=== PATIENT | female | born 1995 | race Hispanic/Latino ===

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

== ENCOUNTER → 2018-12-01 | Outpatient (CLI) | payer MEDICAID ==
[~2018-12-01] MED LIST changes: -CATHETER FLUSH 10 ML SYR IV PRN; -IOHEXOL 350 MG/ML 100 ML (OMNIPAQUE 350) VIAL IV ONE; -NS 100 ML (IVPB) BAG IV ONE
--- NOTE | 2018-12-01 17:31 | Diagnostic Imaging Report ---
INDICATION: Fetus present during , second trimester. TECHNIQUE: Multiple real-time grayscale images were obtained over the gravid uterus. COMPARISON: There are no prior studies available for comparison. FINDINGS: There is a single live fetus in breech presentation. heart motion was noted and a rate of 140 BPM was recorded. There were no abnormalities identified, although the stomach was not identified. The growth parameters are fairly uniform. The placenta is posterior and there is no previa. The amniotic fluid volume is within normal limits. The cervix was visualized and measures 4.1 cm in length. Biometrical measurements are as follows: Biparietal 4.31 cm, age 19 weeks 1 days. Head circumference 15.52 cm, age 18 weeks 4 days. Abdominal circumference 13.78 cm, age 19 weeks 2 days. Femur length 2.9 cm, age 19 weeks 0 days. Sonographic estimate age: 19 weeks 0 days. Sonographic estimated date of delivery: 04/27/2019. Estimated Weight: 269 gm (+/- 39 gm). LMP percentile: 46%. heart rate: 140 beats per minute. number: 1 of 1. IMPRESSION: 1. There is a single live fetus in breech presentation at approximately 19 weeks gestation +/-1.5 weeks. The EDC is April 27, 2019. 2. There were no abnormalities identified, although the stomach was not visualized. If further evaluation of the stomach is desired, then a short-term (4-6 week) followup ultrasound exam should be obtained. 3. The growth parameters are fairly uniform. Dictated by: Dictated on workstation # [id number]
== END ==
LOC: RAD 15:00
PROVIDERS: ATTEND Obstetrics & Gynecology
DX: Z34.92 Encounter for supervision of normal pregnancy, unspecified, second trimester (principal); Z3A.19 19 weeks gestation of pregnancy
CPT/HCPCS: 76805

== ENCOUNTER → 2019-02-05 | Outpatient (CLI) | payer MEDICAID, OTHER ==
--- NOTE | 2019-02-05 19:26 | Diagnostic Imaging Report ---
INDICATION: Reevaluate stomach. Comparison made with prior examination from 12/01/2018. TECHNIQUE: Multiple real-time grayscale images were obtained over the gravid uterus in various projections. FINDINGS: There is a single living intrauterine . Placenta is posterior. There is no previa. Amniotic fluid index is 19.3. The heart rate is 128 bpm and regular. Stomach is normal in appearance. Cervical length is 5.8 cm. IMPRESSION: Limited obstetrical sonogram demonstrates normal stomach. Dictated by: Dictated on workstation # [id number]
== END ==
LOC: RAD 13:59
PROVIDERS: ATTEND Obstetrics & Gynecology
DX: Z04.89 Encounter for examination and observation for other specified reasons (principal); Z3A.22 22 weeks gestation of pregnancy
CPT/HCPCS: 76815

== ENCOUNTER 2019-02-27 09:25 | Outpatient (CLI) | payer OTHER ==
[~2019-02-27] VITALS: Ht 152.4 cm; Wt 66.2 kg
--- NOTE | 2019-02-27 09:25 | NUR ---
TORIBIO FONSECA presented to unit via AMB from WORK, with c/o DECREASE MOVEMENT. TORIBIO FONSECA weighed, gowned, voided, and to bed. EFHM and TOCO applied, VS taken. TORIBIO FONSECA oriented to bed controls, call light, TV, heat, and A/C controls.
[2019-02-27 09:31] VITALS: BP 107/67
--- NOTE | 2019-02-27 09:57 | NUR ---
EFM OFF. REACTIVE NST. NO CONTRACTIONS NOTED. FHR 135 WITH +FM AND + ACCELS.
--- NOTE | 2019-02-27 10:03 | NUR ---
DR. FATIMA NOTIFIED OF PT'S ARRIVAL, COMPLAINT, VITAL SIGNS, AND REACTIVE NST. ORDER TO DISMISS WITH PRECAUTIONS.
[2019-02-27] MEDS ORDERED: PREN1TAB79 PO (10:09)
[2019-02-27 10:11] VITALS: BP 107/67
--- NOTE | 2019-02-27 10:25 | NUR ---
DISCHARGE INSTRUCTIONS REVIEWED WITH COPY TO PT. STATES UNDERSTANDING OF ALL INSTRUCTIONS AND NEED TO F/U SCHEDULED AND NEEDED. DISMISSED AMB FROM WS IN STABLE CONDITION.
--- NOTE | 2019-02-28 08:05 | Physician Query-Final Dx ---
Clinic Account Progress/Dx Physician Query: Please give diagnosis Please include weeks gestation Date of Service Feb 27, 2019 at 09:25 ESTHER TREJO Feb 28, 2019 08:05
== END 2019-02-27 10:25 | disposition home or self-care (01) ==
LOC: WSo 09:25 → LDRP 09:26 → WSo 10:25
PROVIDERS: ATTEND Obstetrics & Gynecology
DX: O36.8130 Decreased fetal movements, third trimester, not applicable or unspecified (principal); Z3A.31 31 weeks gestation of pregnancy
CPT/HCPCS: 99212

== ENCOUNTER 2019-04-26 20:00 | Inpatient (IN) | payer OTHER ==
[~2019-04-26] VITALS: Ht 155 cm; Wt 73.7 kg
[~2019-04-26 20:00] MED LIST changes: +PREN1TAB79 PO
[2019-04-26 20:05] VITALS: BP 113/77
--- NOTE | 2019-04-26 20:05 | NUR ---
TORIBIO TEAGUE presented to unit via ambulatory from home, accompanied by s/o, with c/o INDUCTION. TORIBIO TEAGUE weighed, gowned, voided, and to bed. EFHM and TOCO applied, VS taken. TORIBIO TEAGUE oriented to bed controls, call light, TV, heat, and A/C controls.
[2019-04-26] MEDS ORDERED: MINERAL OIL CONCENTRATE 99.9% 15 ML UDC TOP PRN (20:45)
[2019-04-26] MEDS ORDERED: MISOPROSTOL 100 MCG (CYTOTEC) TAB PO ONE (20:45)
[2019-04-26] MEDS ORDERED: TERBUTALINE INJ 1 MG/ML (BRETHINE) AMP SC PRN (20:45)
[2019-04-26] MEDS: LACTATED RINGERS 1,000 ML IV SCH (21:00)
[2019-04-26] MEDS ORDERED: ZOLPIDEM 5 MG (AMBIEN) TAB PO ONE (21:00)
[2019-04-26 21:28] LABS: BILIRUBIN,URINE NEGATIVE (NEGATIVE); CLARITY,URINE CLEAR; COLOR,URINE YELLOW; GLUCOSE, URINE (UA) NEGATIVE (NEGATIVE); KETONES,URINE NEGATIVE (NEGATIVE); LEUKOCYTE ESTERASE ,URINE TRACE (NEGATIVE); NITRITE,URINE NEGATIVE (NEGATIVE); PROTEIN,URINE NEGATIVE (NEGATIVE)
[2019-04-26 21:30] LABS: BASOPHILS % (AUTO) 0 % (0-10); EOSINOPHILS # (AUTO) 0.1 10^3/uL (0.0-0.3); EOSINOPHILS % (AUTO) 1 % (0-10); HEMATOCRIT 33 % (35-52); LYMPHOCYTES # (AUTO) 2.3 X 10^3 (1.0-4.0); LYMPHOCYTES % (AUTO) 15 % (12-44); MEAN CORPUSCULAR HEMOGLOBIN 30 PG (25-34); MEAN CORPUSCULAR HGB CONC 33 G/DL (32-36); MEAN CORPUSCULAR VOLUME 90 FL (80-99); MEAN PLATELET VOLUME 11.7 FL (7.4-10.4); MONOCYTES # (AUTO) 1.2 X 10^3 (0.0-1.0); MONOCYTES % (AUTO) 8 % (0-12); NEUTROPHILS # (AUTO) 11.9 X 10^3 (1.8-7.8); NEUTROPHILS % (AUTO) 77 % (42-75); PLATELET COUNT 227 10^3/uL (130-400); RED CELL DISTRIBUTION WIDTH 13.8 % (10.0-14.5); WHITE BLOOD COUNT 15.5 10^3/uL (4.3-11.0)
[2019-04-26 21:42] LABS: BACTERIA,URINE TRACE /HPF; RBC,URINE RARE /HPF; WBC,URINE RARE /HPF
[2019-04-26] MEDS ORDERED: CATHETER FLUSH 10 ML SYR IV SCH (22:00)
[2019-04-26] MEDS: D5 LR IV SOLUTION 1,000 ML IV SCH (22:09)
[2019-04-26 23:00] VITALS: BP 121/76
[2019-04-27] VITALS (49 sets, daily range): BP systolic 104–136; BP diastolic 54–86
[2019-04-27] MEDS: MISOPROSTOL 100 MCG (CYTOTEC) TAB PO SCH ×2 (01:58→06:17)
[2019-04-27] MEDS: D5 LR IV SOLUTION 1,000 ML IV SCH ×2 (04:28→12:34)
--- NOTE | 2019-04-27 06:10 | NUR ---
SVE done at bedside. Pt is dilated to 1.5cm, 50-60% effaced.
[2019-04-27] MEDS: LACTATED RINGERS 1,000 ML IV SCH (07:15)
[2019-04-27] MEDS ORDERED: BUTORPHANOL INJ 2 MG/ML (STADOL) VIAL IV ONE (07:15)
[2019-04-27] MEDS ORDERED: FLU QUADRIvalent (5+ YOA) 2019-2020 (AFLURIA) 0.5 ML IM ONE (07:15)
[2019-04-27] MEDS ORDERED: SUFENTA 0.6MCG/ML BUPIVA 0.125 100 ML ONE (07:28)
[2019-04-27] MEDS ORDERED: LACTATED RINGERS 1,000 ML IV SCH (08:19)
[2019-04-27] MEDS ORDERED: NALOXONE 0.4 MG/ML 1 ML (NARCAN) VIAL IV PRN ×2 (08:30)
[2019-04-27] MEDS ORDERED: METOCLOPRAMIDE INJ 10 MG/2 ML (REGLAN) IV PRN (08:30)
[2019-04-27] MEDS ORDERED: ONDANSETRON 4 MG/2 ML (SDV) Z0FRAN IV PRN (08:30)
[2019-04-27] MEDS ORDERED: diphenhydrAMINE 50 MG/ML INJ (BENADRYL) IV PRN (08:30)
[2019-04-27] MEDS ORDERED: EPIDURAL (SUFENTA 0.6MCG/ML BUPIVA 0.125%) 100 ML BAG EPI SCH (08:30)
[2019-04-27] MEDS ORDERED: OXYTOCIN/NORMAL SALINE 500 ML IV ONE (10:00)
[2019-04-27] MEDS ORDERED: OXYTOCIN/NORMAL SALINE 500 ML IV SCH ×2 (10:03→15:28)
[2019-04-27] MEDS ORDERED: LIDOCAINE 1% INJ 20 ML 20 ML VIAL ONE (12:20)
--- NOTE | 2019-04-27 15:10 | NUR ---
REPORT FROM ZOË CASEY. SANDRA-CARE COMPLETED PT REPOSITIONED IN BED, EPIDURAL CATHETER REMOVED BLACK TIP NOTED ON REMOVAL, FFU/2 LT LOCHIA NOTED, PT DENIES NEEDS AT THIS TIME. S/O AND FAMILY MEMBER AT SIDE, INFANT IN MOTHERS ARMS.
[2019-04-27] MEDS ORDERED: IBUPROFEN 600 MG (MOTRIN) TAB PO ONE (15:24)
[2019-04-27] MEDS ORDERED: TETANUS,DIPTH,PERTUSS P/F (BOOSTRIX) 0.5 ML VIAL IM ONE (15:30)
[2019-04-27] MEDS ORDERED: DIBUCAINE (NUPERCAINAL) 1% OINT 30 GM TOP PRN (15:30)
[2019-04-27] MEDS: IBUPROFEN 600 MG (MOTRIN) TAB PO SCH ×2 (15:30→20:44)
[2019-04-27] MEDS ORDERED: MEASLES,MUMPS,RUBELLA 1 EA INJ SQ ONE (15:30)
[2019-04-27] MEDS ORDERED: WITCH HAZEL(TUCKS) 40 EA JAR TOP PRN (15:30)
--- NOTE | 2019-04-27 15:30 | NUR ---
SCHEDULED MOTRIN GIVEN PO, PITOCIN 2ND BAG STARTED PER ORDER. FFU/1 LT LOCHIA NOTED, FRESH ICE WATER GIVEN NO C/O NOTED WILL MONITOR.
--- NOTE | 2019-04-27 15:40 | OB Labor & Delivery Record ---
Vag Delivery Note Vag Delivery Note Date of Delivery: 04/27/19 Preoperative Diagnosis: Robert Gomez is a 24 /Para 1/0 , Gestational Age 40 weeks with social induction for post dates Postoperative Diagnosis: Same Surgeon: CATRACHITA FATIMA Anesthesia: epidural, local Delivery Type: vaginal Findings: Viable male infant, apgars , weight 8#2 ounces Lacerations: 2nd degree laceration with partial capsulotomy Intact placenta with 3 vessel cord. No nuchal cord, body cord or shoulder dystocia Estimated Blood Loss:500 ml Complications: None Condition: Stable Description of Procedure: The patient is a 24 year old female who presented for induction of labor. She was admitted and informed consent was obtained. Her labor course was remarkable for oral misoprostol, AROM and oxytocin augmentation. She progressed to complete dilatation and began to push. She was then set up for delivery. The 's head was delivered atraumatically in the ROT position. The shoulders and remainder of the infant's body were then delivered without difficulty. Upon delivery, the head was held below the level of the perineum and the mouth and nares were bulb suctioned. The cord was doubly clamped and cut and the infant was handed off to the pediatric staff. An intact placenta with 3-vessel cord delivered via Shaneka and there was found to be minimal bleeding.~ Vigorous fundal massage was performed and the fundus was found to be firm. IV oxytocin was given. Examination of the vagina and perineum revealed a 2nd degree laceration partial capsulotomy. There was a superficial tear up to the anal tissue but no rectal laceration. I injected the perineum with 1% lidocaine with epinephrine The laceration repaired in the usual fashion with 3-0 vicryl suture. Following the repair, sponge, instrument and needle counts were correct. Mom and baby were both in stable condition in the labor suite. Vitals - Labs Vital Signs - I&O Vital Signs Date Time Temp Pulse Resp B/P (MAP) Pulse Ox O2 Delivery O2 Flow Rate FiO2 04/27/19 15:00 37.9 131 18 131/68 (89) 04/27/19 14:45 18 04/27/19 14:30 109 18 122/59 (80) 04/27/19 14:15 101 18 125/61 (82) 04/27/19 14:00 95 18 128/61 (83) 04/27/19 13:45 97 18 125/76 (92) 04/27/19 13:30 95 18 132/68 (89) 04/27/19 13:15 84 18 122/58 (79) 04/27/19 13:00 36.7 94 18 123/80 (94) 04/27/19 12:45 87 18 132/78 (96) 04/27/19 12:30 93 18 127/76 (93) 04/27/19 12:15 78 18 117/78 (91) Room Air 04/27/19 12:00 88 18 116/63 (80) 100 Room Air 04/27/19 11:45 90 18 120/62 (81) 100 Room Air 04/27/19 11:30 83 18 126/78 (94) 100 Room Air 04/27/19 11:15 100 18 119/69 (86) 100 Room Air 04/27/19 11:00 86 18 119/76 (90) 100 Room Air 04/27/19 10:45 85 18 119/73 (88) 100 Room Air 04/27/19 10:30 83 18 117/73 (88) 100 Room Air 04/27/19 10:15 90 18 122/72 (89) 100 Room Air 04/27/19 10:00 36.5 92 18 120/75 (90) 100 Room Air 04/27/19 09:45 92 18 118/77 (91) 100 Room Air 04/27/19 09:30 94 18 113/71 (85) 100 Room Air 04/27/19 09:15 104 18 111/71 (84) 100 Room Air 04/27/19 09:00 95 18 111/69 (83) 100 Room Air 04/27/19 08:45 112 18 117/72 (87) 100 Room Air 04/27/19 08:40 90 18 115/56 (75) 100 Room Air 04/27/19 08:35 88 18 107/62 (77) 100 Room Air 04/27/19 08:30 81 18 111/64 (80) 100 Room Air 04/27/19 08:25 81 18 109/66 (80) 100 Room Air 04/27/19 08:20 85 18 108/61 (77) 100 Room Air 04/27/19 08:15 95 18 104/55 (71) 100 Room Air 04/27/19 08:10 88 18 109/55 (73) 100 Room Air 04/27/19 08:05 88 18 106/59 (75) 99 Room Air 04/27/19 08:00 88 18 114/66 (82) 99 Room Air 04/27/19 07:45 84 18 128/76 (93) 99 Room Air 04/27/19 07:30 36.7 96 18 136/86 (103) 04/27/19 04:00 36.5 81 18 126/79 (95) 04/27/19 03:00 81 18 128/83 (98) 04/27/19 02:00 74 18 131/76 (94) 04/27/19 01:00 36.5 92 18 124/79 (94) 04/27/19 00:00 75 18 120/74 (89) 04/26/19 23:00 83 18 121/76 (91) 04/26/19 20:05 36.9 87 18 100 Room Air I & O 04/27/19 07:00 Intake Total 2000 ml Balance 2000 ml Labs Laboratory Tests 04/26/19 20:30: White Blood Count 15.5H, Red Blood Count 3.64L, Hemoglobin 11.0L, Hematocrit 33L , Mean Corpuscular Volume 90, Mean Corpuscular Hemoglobin 30, Mean Corpuscular Hemoglobin Concent 33, Red Cell Distribution Width 13.8, Platelet Count 227, Mean Platelet Volume 11.7H, Neutrophils (%) (Auto) 77H, Lymphocytes (%) (Auto) 15, Monocytes (%) (Auto) 8, Eosinophils (%) (Auto) 1, Basophils (%) (Auto) 0, Neutrophils # (Auto) 11.9H, Lymphocytes # (Auto) 2.3, Monocytes # (Auto) 1.2H, Eosinophils # (Auto) 0.1, Basophils # (Auto) 0.0, Urine Color YELLOW, Urine Clarity CLEAR, Urine pH 7.0, Urine Specific [place] <=1.005, Urine Protein NEGATIVE, Urine Glucose (UA) NEGATIVE, Urine Ketones NEGATIVE, Urine Nitrite NEGATIVE, Urine Bilirubin NEGATIVE, Urine Urobilinogen 0.2, Urine Leukocyte Esterase TRACE, Urine RBC (Auto) TRACE-I, Urine RBC RARE, Urine WBC RARE, Urine Squamous Epithelial Cells 2-5, Urine Crystals NONE, Urine Bacteria TRACE, Urine Casts NONE, Urine Mucus NEGATIVE, Urine Culture Indicated NO CATRACHITA FATIMA DO Apr 27, 2019 15:40 POS
--- NOTE | 2019-04-27 16:15 | NUR ---
OXYCODONE GIVEN FOR PAIN, FFU/0 MOD LOCHIA NOTED, X 1 SMALL CLOT APPROX QUARTER SIZE NOTED EXPRESSED, PT ALSO VOIDED LARGE AMOUNT DURING FUNDAL MASSAGE, DERMAPLAST, TUCKS AND NUPERCANAL APPLIED, ALONG WITH ICE PACK AND NEW PAD AND PANTIES, PT TOLERATED WELL, PT TRANSFERRED TO ROOM 3310 BY FOR CONTINUED CARE. EXPLAINED INFO PAPERS NO QUESTIONS OR CONCERNS NOTED, PTS MOTHER AT SIDE, HANDED TO MOTHERS ARMS.
[2019-04-27] MEDS: BENZOCAINE/MENTHOL (DERMOPLAST) 56 ML CAN TP PRN (16:17)
--- NOTE | 2019-04-27 17:15 | NUR ---
REPORT RECEIVED FROM CATRACHITO FRANKEL RN.
--- NOTE | 2019-04-27 17:30 | NUR ---
ASSISTED UP TO THE BATHROOM. VOIDED LARGE AMOUNT. WHILE ASSISTING WITH SANDRA CARE, PT C/O FEELING "BAD" . PT BECAME PALE WITH SLUMPED FORWARD WITH THIS RN SUPPORTING PT. EMERGENCY CORD PULLED FOR HELP. COOL CLOTH TO FOREHEAD. ASKED SPOUSE TO GO OUT TO ASK FOR A W/C AND SEE IF SOMEONE CAN COME TO THE ROOM. 2ND RN TO ROOM TO ASSIST WHEN STARTED DRY HEAVING AND SPITTING UP MUCOUS. 3RD RN TO ROOM TO ASSIST WITH GETTING PT BACK TO BED.
--- NOTE | 2019-04-27 17:40 | NUR ---
BACK TO BED WITH RN'S X2. VS TAKEN AND WITHIN NORMAL LIMITS AT THIS TIME. COLOR RETURNING TO FACE. INFORMED PT AND SPOUSE TO CALL FOR ASSISTANCE WITH THE NEXT VOID.
--- NOTE | 2019-04-27 18:30 | NUR ---
EATING DINNER. STATES FEELING BETTER. FRESH ICE PACK GIVEN.
--- NOTE | 2019-04-27 19:45 | NUR ---
Patient ambulated to bathroom with stand by assist per this RN. Patient ambulated to bathroom without issue. Positive void achieved. Isabella care provided by patient with assist from this RN. Patient ambulated back to bed without issue. Denies any dizziness or lightheadness at this time.
[2019-04-27] MEDS: DOCUSATE SODIUM 100 MG (COLACE) CAP PO SCH (20:44)
[2019-04-27] MEDS ORDERED: CATHETER FLUSH 10 ML SYR IV SCH (22:00)
[2019-04-27] MEDS: ACETAMINOPHEN 500 MG TAB (TYLENOL) PO SCH (22:10)
[2019-04-28 00:30] VITALS: BP 93/54
[2019-04-28 03:09] VITALS: BP 106/74
[2019-04-28] MEDS: IBUPROFEN 600 MG (MOTRIN) TAB PO SCH ×4 (03:09→23:48)
[2019-04-28] MEDS: ACETAMINOPHEN 500 MG TAB (TYLENOL) PO SCH ×3 (05:45→20:33)
[2019-04-28 06:38] LABS: BASOPHILS % (AUTO) 0 % (0-10); EOSINOPHILS # (AUTO) 0.1 10^3/uL (0.0-0.3); EOSINOPHILS % (AUTO) 0 % (0-10); HEMATOCRIT 24 % (35-52); HEMOGLOBIN 7.9 G/DL (11.5-16.0); LYMPHOCYTES # (AUTO) 2.4 X 10^3 (1.0-4.0); LYMPHOCYTES % (AUTO) 11 % (12-44); MEAN CORPUSCULAR HEMOGLOBIN 30 PG (25-34); MEAN CORPUSCULAR HGB CONC 33 G/DL (32-36); MEAN CORPUSCULAR VOLUME 91 FL (80-99); MEAN PLATELET VOLUME 11.1 FL (7.4-10.4); MONOCYTES # (AUTO) 1.8 X 10^3 (0.0-1.0); MONOCYTES % (AUTO) 8 % (0-12); NEUTROPHILS # (AUTO) 18.5 X 10^3 (1.8-7.8); NEUTROPHILS % (AUTO) 81 % (42-75); PLATELET COUNT 167 10^3/uL (130-400); WHITE BLOOD COUNT 22.8 10^3/uL (4.3-11.0)
--- NOTE | 2019-04-28 08:57 | Postpartum Progress Note ---
Note Note Day # 1 s/p Subjective: Patient is without complaints. Ambulating, voiding. Tolerating a regular diet without nausea or vomiting. Normal lochia. Pain is well controlled with oral pain medications. breast feeding. Objective: 04/28/19 04/28/19 00:30 03:09 Temp 36.9 36.7 Pulse 96 89 Resp 18 18 B/P (MAP) 93/54 (67) 106/74 (85) Pulse Ox 99 98 O2 Delivery Room Air Room Air 04/28/19 00:00 Intake Total 2375 ml Balance 2375 ml Laboratory Tests Test 04/28/19 05:25 Range/Units White Blood Count 22.8 H 4.3-11.0 10^3/uL Red Blood Count 2.67 L 4.35-5.85 10^6/uL Hemoglobin 7.9 #L 11.5-16.0 G/DL Hematocrit 24 L 35-52 % Mean Corpuscular Volume 91 80-99 FL Mean Corpuscular Hemoglobin 30 25-34 PG Mean Corpuscular Hemoglobin Concent 33 32-36 G/DL Red Cell Distribution Width 14.0 10.0-14.5 % Platelet Count 167 130-400 10^3/uL Mean Platelet Volume 11.1 H 7.4-10.4 FL Neutrophils (%) (Auto) 81 H 42-75 % Lymphocytes (%) (Auto) 11 L 12-44 % Monocytes (%) (Auto) 8 0-12 % Eosinophils (%) (Auto) 0 0-10 % Basophils (%) (Auto) 0 0-10 % Neutrophils # (Auto) 18.5 H 1.8-7.8 X 10^3 Lymphocytes # (Auto) 2.4 1.0-4.0 X 10^3 Monocytes # (Auto) 1.8 H 0.0-1.0 X 10^3 Eosinophils # (Auto) 0.1 0.0-0.3 10^3/uL Basophils # (Auto) 0.0 0.0-0.1 10^3/uL Physical Exam: General - Alert and oriented, no apparent distress Abdomen - Soft, appropriately tender to palpation, non-distended, fundus firm at umbilicus Extremities - no edema, negative Rosalba's bilaterally Assessment: 1. post- day #1, status post spontaneous vaginal delivery. Recovering well, hemodynamically stable 2. Acute blood loss anemia Plan: Routine care. Encourage breast feeding. Encourage ambulation. Ferrous sulfate supplementation. Plan for discharge tomorrow Vitals - Labs Vital Signs - I&O Vital Signs Date Time Temp Pulse Resp B/P (MAP) Pulse Ox O2 Delivery O2 Flow Rate FiO2 04/28/19 03:09 36.7 89 18 106/74 (85) 98 Room Air 04/28/19 00:30 36.9 96 18 93/54 (67) 99 Room Air 04/27/19 20:44 36.9 112 18 108/68 (81) 98 Room Air 04/27/19 17:40 79 18 104/54 (71) 99 Room Air 04/27/19 16:11 37.2 99 18 109/57 (74) 04/27/19 16:06 105 18 106/57 (73) 04/27/19 15:56 98 18 117/66 (83) 04/27/19 15:41 110 18 111/55 (73) 04/27/19 15:30 37.2 108 18 114/60 (78) 04/27/19 15:10 112 18 117/57 (77) 04/27/19 15:00 37.9 131 18 131/68 (89) 04/27/19 14:45 18 04/27/19 14:30 109 18 122/59 (80) 04/27/19 14:15 101 18 125/61 (82) 04/27/19 14:00 95 18 128/61 (83) 04/27/19 13:45 97 18 125/76 (92) 04/27/19 13:30 95 18 132/68 (89) 04/27/19 13:15 84 18 122/58 (79) 04/27/19 13:00 36.7 94 18 123/80 (94) 04/27/19 12:45 87 18 132/78 (96) 04/27/19 12:30 93 18 127/76 (93) 04/27/19 12:15 78 18 117/78 (91) Room Air 04/27/19 12:00 88 18 116/63 (80) 100 Room Air 04/27/19 11:45 90 18 120/62 (81) 100 Room Air 04/27/19 11:30 83 18 126/78 (94) 100 Room Air 04/27/19 11:15 100 18 119/69 (86) 100 Room Air 04/27/19 11:00 86 18 119/76 (90) 100 Room Air 04/27/19 10:45 85 18 119/73 (88) 100 Room Air 04/27/19 10:30 83 18 117/73 (88) 100 Room Air 04/27/19 10:15 90 18 122/72 (89) 100 Room Air 04/27/19 10:00 36.5 92 18 120/75 (90) 100 Room Air 04/27/19 09:45 92 18 118/77 (91) 100 Room Air 04/27/19 09:30 94 18 113/71 (85) 100 Room Air 04/27/19 09:15 104 18 111/71 (84) 100 Room Air 04/27/19 09:00 95 18 111/69 (83) 100 Room Air I & O 04/28/19 07:00 Intake Total 3375 ml Balance 3375 ml Labs Laboratory Tests 04/28/19 05:25: White Blood Count 22.8H, Red Blood Count 2.67L, Hemoglobin 7.9#L, Hematocrit 24L , Mean Corpuscular Volume 91, Mean Corpuscular Hemoglobin 30, Mean Corpuscular Hemoglobin Concent 33, Red Cell Distribution Width 14.0, Platelet Count 167, Mean Platelet Volume 11.1H, Neutrophils (%) (Auto) 81H, Lymphocytes (%) (Auto) 11L, Monocytes (%) (Auto) 8, Eosinophils (%) (Auto) 0, Basophils (%) (Auto) 0, Neutrophils # (Auto) 18.5H, Lymphocytes # (Auto) 2.4, Monocytes # (Auto) 1.8H, Eosinophils # (Auto) 0.1, Basophils # (Auto) 0.0 CATRACHITA FATIMA DO Apr 28, 2019 08:57 POS
[2019-04-28] MEDS ORDERED: DOCU100C37 PO (09:00)
[2019-04-28] MEDS ORDERED: ACET-77 PO (09:00)
[2019-04-28] MEDS ORDERED: FERR325T18 PO (09:00)
[2019-04-28] MEDS ORDERED: OXC5T PO (09:00)
[2019-04-28] MEDS ORDERED: IBUP-844 PO (09:00)
[2019-04-28] MEDS ORDERED: Benzocaine/Menthol TP (09:00)
--- NOTE | 2019-04-28 09:06 | Discharge Inst-Women's Service ---
Discharge Inst-Women's Serv Depart Medication/Instructions New, Converted or Re-Newed RX: RX on Chart Final Diagnosis vaginal delivery 2nd degree laceration epidural acute blood loss anemia Problems Reviewed?: Yes Consults/Follow Up Additional Follow Up: Yes Activity Activity: Activity as Tolerated Driving Instructions: You May Drive NO SMOKING: NO SMOKING Nothing Inside Vagina: No Douching, No [place], No Tampons Diet Discharge Diet: No Restrictions Symptoms to Report to : Swelling Increased, Eyesight Changes, Pain Increased, Fever Over 101 Degrees F, Vaginal Bleeding Increase, Cramps in Feet or Legs, Vaginal Discharge Foul For Any Problems or Questions: Contact Your Physician Skin/Wound Care Bathing Instructions: CATRACHITA Harding DO Apr 28, 2019 09:06 POS
[2019-04-28 09:11] VITALS: BP 109/64
[2019-04-28] MEDS: FERROUS SULF 325 MG (IRON) TAB PO SCH (09:18)
[2019-04-28] MEDS: DOCUSATE SODIUM 100 MG (COLACE) CAP PO SCH ×2 (09:18→20:33)
[2019-04-28] MEDS: PRENATAL VITAMIN 1 EA TAB PO SCH (09:18)
[2019-04-28 12:34] VITALS: BP 128/86
--- NOTE | 2019-04-28 13:31 | Anesthesia-Regional Post-Op ---
Regional Patient Condition Mental Status: Alert, Oriented x3 Circulation: Same as Pre-Op Headache: Absent Sensation: Full Recovery Motor Block: Absent Post Op Complications Complications None Follow Up Care/Instructions Patient Instructions None needed. Anesthesia/Patient Condition Patient is doing well, no complaints, stable vital signs, no apparent adverse anesthesia problems. No complications reported per nursing. LARISA PAUL CRNA Apr 28, 2019 13:31 POS
[2019-04-28 16:00] VITALS: BP 124/78
--- NOTE | 2019-04-28 16:00 | NUR ---
Pt up and about without dizziness. VSS - standing talking on phone.
--- NOTE | 2019-04-28 20:41 | NUR ---
assessment completed. pt c/o thickness on right side of throat. Sp02 100% pt denies any shortness of air. no redness noted. told patient to notify rn if she feels symptoms worsening
[2019-04-28 20:47] VITALS: BP 110/71
[2019-04-29 03:00] VITALS: BP 106/66
[2019-04-29] MEDS: ACETAMINOPHEN 500 MG TAB (TYLENOL) PO SCH ×2 (04:03→09:27)
[2019-04-29] MEDS: IBUPROFEN 600 MG (MOTRIN) TAB PO SCH (06:05)
--- NOTE | 2019-04-29 07:00 | NUR ---
REPORT FROM EUGENE CASEY.
--- NOTE | 2019-04-29 08:48 | Progress Note ---
Standard Progress Note Progress Notes/Assess & Plan Date Seen by a Provider: Apr 29, 2019 Time Seen by a Provider: 08:47 Progress/Assessment & Plan This patient is without complaint. She is ablating, voiding, tolerating oral intake well has good pain control. She is requesting discharge home Vital Signs 04/29/19 03:00 Temp 36.8 Pulse 88 Resp 20 B/P (MAP) 106/66 (79) Pulse Ox 100 O2 Delivery Room Air Vital signs are stable. Patient is afebrile. Fundus is firm below the umbilicus and nontender. Extreme show no clubbing cyanosis. There is no Homans sign. There is some pretibial pitting edema that is normal. Assessment and plan day number 2 doing well plan is for discharge home with follow-up in clinic RAJI MARIA MD Apr 29, 2019 08:48 POS
--- NOTE | 2019-04-29 08:50 | NUR ---
DR GALEAS HERE D/C ORDERS RECEIVED.
[2019-04-29] MEDS: BENZOCAINE/MENTHOL (DERMOPLAST) 56 ML CAN TP PRN (09:15)
[2019-04-29 09:20] VITALS: BP 116/64
--- NOTE | 2019-04-29 09:20 | NUR ---
INITIAL ASSESSMENT COMPLETED, PT DENIES NEED OR C/O, SCHEDULED MED GIVEN. PT FINISHING UP BREAKFAST, SHOWER SET UP.
[2019-04-29] MEDS: PRENATAL VITAMIN 1 EA TAB PO SCH (09:27)
[2019-04-29] MEDS: DOCUSATE SODIUM 100 MG (COLACE) CAP PO SCH (09:27)
[2019-04-29] MEDS: FERROUS SULF 325 MG (IRON) TAB PO SCH (09:27)
--- NOTE | 2019-04-29 10:20 | NUR ---
FLU VACCINE GIVEN. PT PUMPING.
[2019-04-29 12:30] VITALS: BP 107/74
--- NOTE | 2019-04-29 13:50 | NUR ---
DISCHARGE INSTRUCTIONS EXPLAINED TO PT, NO QUESTIONS NOTED, PT VERBALIZES UNDERSTANDING OF DISCHARGE INSTRUCTIONS AND FOLLOW UP CARE, NO QUESTIONS OR CONCERNS NOTED.
--- NOTE | 2019-04-29 14:30 | NUR ---
pt ambulated to private vehicle with this RN, and s/o @ side. secured in rear facing car seat. pt stable with no sx's of distress noted.
== END 2019-04-29 14:30 | disposition home or self-care (01) | DRG 806 ==
LOC: LDRP 20:18
PROVIDERS: ADMIT Obstetrics & Gynecology; ATTEND Obstetrics & Gynecology
PROC: 10E0XZZ Delivery of Products of Conception, External Approach (ICD-10-PCS; principal; 2019-04-27)
PROC: 0KQM0ZZ Repair Perineum Muscle, Open Approach (ICD-10-PCS; 2019-04-27)
PROC: 10907ZC Drainage of Amniotic Fluid, Therapeutic from Products of Conception, Via Natural or Artificial Opening (ICD-10-PCS; 2019-04-27)
DX: O48.0 Post-term pregnancy (principal); Z37.0 Single live birth; D62 Acute posthemorrhagic anemia; O70.1 Second degree perineal laceration during delivery; O90.81 Anemia of the puerperium; Z3A.40 40 weeks gestation of pregnancy; Z23 Encounter for immunization
CPT/HCPCS: 36415; 81000; 85025; 86850; 86900; 86901

== ENCOUNTER 2019-10-20 03:31 | Emergency (ER) | payer OTHER ==
[~2019-10-20] VITALS: Ht 157 cm; Wt 59.0 kg
[~2019-10-20 03:31] MED LIST changes: +ACET-78 PO; +Benzocaine/Menthol TP; +DOCU100C37 PO; +FERR325T18 PO; +IBUP-844 PO; +OXC5T PO
[2019-10-20] MEDS ORDERED: LACTATED RINGERS 1,000 ML IV ONE (03:37)
[2019-10-20] MEDS ORDERED: PANTOPRAZOLE 40 MG (PROTONIX) VIAL IV ONE (03:45)
--- NOTE | 2019-10-20 03:46 | ED Abdominal Pain ---
General Stated Complaint: ABD PAIN Source of Information: Patient Exam Limitations: No Limitations History of Present Illness Date Seen by Provider: October 20, 2019 Time Seen by Provider: 03:29 Initial Comments Patient presents to ER by EMS from home with chief complaint about 10 minutes prior to calling EMS she began to experience severe pain in her epigastric region. She said it was cold, sharp, constant and shortly after EMS arrived started to wane. She said she was up making a bottle for her child who she is 5 months vaginal delivery without complications. After she fed the child she started having the pain. She's never had anything like this before. She has no history of abdominal surgeries. She had some nausea without vomiting. She has no fevers chills cough chest pain. She had a bowel movement yesterday morning which was loose. She had a Depo-Provera shot but is not taking any other medications. She has no other significant medical history. No trauma. No history of pancreatitis. She does not history hyperlipidemia, diabetes, gallbladder disease. EMS reports when they arrived at her house she was screaming in pain. They made an attempt at IV unsuccessfully. She then relaxed so they decided to transport her here. They did not give her anything. They remarked that she had normal vital signs with heart rate in the 80s, afebrile and normal blood pressure. Allergies and Home Medications Allergies Coded Allergies: No Known Drug Allergies (Unverified , 02/11/14) Home Medications Acetaminophen 500 Mg Tablet, 1,000 MG PO Q8HR Prescribed by: CATRACHITA FATIMA on 04/28/19899 Docusate Sodium 100 Mg Capsule, 100 MG PO BID Prescribed by: CATRACHITA FATIMA on 04/28/19899 Ferrous Sulfate 325 Mg Tablet, 325 MG PO DAILY@0700 Prescribed by: CATRACHITA FATIMA on 04/28/19899 Ibuprofen 600 Mg Tablet, 600 MG PO Q6HR Prescribed by: CATRACHITA FATIMA on 04/28/19899 Oxycodone Hcl 5 Mg Tab, 5 MG PO Q4HR Prescribed by: CATRACHITA FATIMA on 04/28/19 09 Vit W-Ca,Fe,FA(<1 mg) 1 Each Tablet, 1 EACH PO DAILY, (Reported) [Benzocaine/Menthol] 56 ML AEROSOL, 56 ML TP UD PRN for PAIN- SEE INSTRUCTIONS EXTERNAL USE ONLY Prescribed by: CATRACHITA FATIMA on 04/28/19 0900 Patient Home Medication List Home Medication List Reviewed: Yes Review of Systems Review of Systems Constitutional: No chills, No diaphoresis EENTM: No Blurred Vision, No Double Vision Respiratory: Denies Cough, Denies Shortness of Air Cardiovascular: Denies Chest Pain, Denies Lightheadedness Gastrointestinal: See HPI, Abdominal Pain; Denies Constipated; Diarrhea, Nausea; Denies Poor Fluid Intake, Denies Vomiting Genitourinary: Denies Burning, Denies Discharge Musculoskeletal: No back pain, No joint pain Skin: No pruritus, No rash Psychiatric/Neurological: Denies Headache, Denies Numbness, Denies Paresthesia All Other Systems Reviewed Negative Unless Noted: Yes Past Pdnjupb-Advhje-Bmbdtr Hx Patient Social History Alcohol Use: Denies Use Recreational Drug Use: No Smoking Status: Never a Smoker Recent Hopitalizations: No Seasonal Allergies Seasonal Allergies: No Past Medical History Surgeries: Yes Respiratory: No Cardiac: No Neurological: No Sexually Transmitted Disease: No HIV/AIDS: No Genitourinary: No Gastrointestinal: No Musculoskeletal: No Endocrine: No HEENT: No Cancer: No Psychosocial: No Integumentary: No Blood Disorders: No Adverse Reaction/Blood Tranf: No Physical Exam Vital Signs Vital Signs - First Documented 10/20/19 03:41 Temp 36.1 Pulse 79 Resp 20 B/P (MAP) 115/68 (84) Pulse Ox 100 O2 Delivery Room Air Capillary Refill : Height/Weight/BMI Height: 5'0.00" Weight: 146lbs. 0.2oz. [id number]; 30.67 BMI Method: General Appearance: WD/WN, mild distress HEENT: PERRL/EOMI, pharynx normal Neck: non-tender, normal inspection Respiratory: no respiratory distress, no accessory muscle use Cardiovascular: normal peripheral pulses, regular rate, rhythm Peripheral Pulses: 2+ Radial Pulses (R), 2+ Radial Pulses (L) Gastrointestinal: normal bowel sounds (quiescent), non tender, soft, no organomegaly, other (negative for Duran sign, Rovsing sign, McBurney's point tenderness or psoas sign.) Extremities: non-tender, normal inspection, normal capillary refill Neurologic/Psychiatric: alert, normal mood/affect, oriented x 3 Skin: normal color, warm/dry Progress/Results/Core Measures Results/Orders Lab Results Laboratory Tests Test 10/20/19 03:35 10/20/19 04:04 Range/Units White Blood Count 17.0 H 4.3-11.0 10^3/uL Red Blood Count 4.24 L 4.35-5.85 10^6/uL Hemoglobin 12.2 11.5-16.0 G/DL Hematocrit 37 35-52 % Mean Corpuscular Volume 88 80-99 FL Mean Corpuscular Hemoglobin 29 25-34 PG Mean Corpuscular Hemoglobin Concent 33 32-36 G/DL Red Cell Distribution Width 14.7 H 10.0-14.5 % Platelet Count 279 130-400 10^3/uL Mean Platelet Volume 10.4 7.4-10.4 FL Neutrophils (%) (Auto) 84 H 42-75 % Lymphocytes (%) (Auto) 12 12-44 % Monocytes (%) (Auto) 3 0-12 % Eosinophils (%) (Auto) 1 0-10 % Basophils (%) (Auto) 0 0-10 % Neutrophils # (Auto) 14.2 H 1.8-7.8 X 10^3 Lymphocytes # (Auto) 2.1 1.0-4.0 X 10^3 Monocytes # (Auto) 0.5 0.0-1.0 X 10^3 Eosinophils # (Auto) 0.2 0.0-0.3 10^3/uL Basophils # (Auto) 0.0 0.0-0.1 10^3/uL Sodium Level 141 135-145 MMOL/L Potassium Level 3.3 L 3.6-5.0 MMOL/L Chloride Level 109 H 98-107 MMOL/L Carbon Dioxide Level 19 L 21-32 MMOL/L Anion Gap 13 5-14 MMOL/L Blood Urea Nitrogen 14 7-18 MG/DL Creatinine 0.84 0.60-1.30 MG/DL Estimat Glomerular Filtration Rate > 60 BUN/Creatinine Ratio 17 Glucose Level 158 H 70-105 MG/DL Calcium Level 9.2 8.5-10.1 MG/DL Corrected Calcium 8.5-10.1 MG/DL Total Bilirubin 1.1 H 0.1-1.0 MG/DL Aspartate Amino Transf (AST/SGOT) 28 5-34 U/L Alanine Aminotransferase (ALT/SGPT) 22 0-55 U/L Alkaline Phosphatase 65 40-136 U/L C-Reactive Protein High Sensitivity 0.17 0.00-0.50 MG/DL Total Protein 7.8 6.4-8.2 GM/DL Albumin 4.7 H 3.2-4.5 GM/DL Lipase 9 8-78 U/L Urine Color YELLOW Urine Clarity CLEAR Urine pH 6.0 5-9 Urine Specific [place] 1.025 H 1.016-1.022 Urine Protein TRACE H NEGATIVE Urine Glucose (UA) NEGATIVE NEGATIVE Urine Ketones NEGATIVE NEGATIVE Urine Nitrite NEGATIVE NEGATIVE Urine Bilirubin NEGATIVE NEGATIVE Urine Urobilinogen 0.2 < = 1.0 MG/DL Urine Leukocyte Esterase 1+ H NEGATIVE Urine RBC (Auto) NEGATIVE NEGATIVE Urine RBC NONE /HPF Urine WBC 10-25 H /HPF Urine Squamous Epithelial Cells 5-10 /HPF Urine Crystals NONE /LPF Urine Bacteria FEW H /HPF Urine Casts NONE /LPF Urine Mucus MODERATE H /LPF Urine Culture Indicated YES Urine Opiates Screen NEGATIVE NEGATIVE Urine Oxycodone Screen NEGATIVE NEGATIVE Urine Methadone Screen NEGATIVE NEGATIVE Urine Propoxyphene Screen NEGATIVE NEGATIVE Urine Barbiturates Screen NEGATIVE NEGATIVE Ur Tricyclic Antidepressants Screen NEGATIVE NEGATIVE Urine Phencyclidine Screen NEGATIVE NEGATIVE Urine Amphetamines Screen NEGATIVE NEGATIVE Urine Methamphetamines Screen NEGATIVE NEGATIVE Urine Benzodiazepines Screen NEGATIVE NEGATIVE Urine Cocaine Screen NEGATIVE NEGATIVE Urine Cannabinoids Screen NEGATIVE NEGATIVE My Orders Orders - NITISH NEW Ua Culture If Indicated (10/20/19 03:37) Urine Bedside (10/20/19 03:37) Cbc With Automated Diff (10/20/19 03:37) Comprehensive Metabolic Panel (10/20/19 03:37) Lipase (10/20/19 03:37) Pantoprazole Injection (Protonix Injecti (10/20/19 03:45) Ed Iv/Invasive Line Start (10/20/19 03:37) Lactated Ringers (Lr 1000 Ml Iv Solution (10/20/19 03:37) Ketorolac Injection (Toradol Injection) (10/20/19 04:00) Hs C Reactive Protein (10/20/19 03:35) Manual Differential (10/20/19 03:35) Ct Abdomen/Pelvis W (10/20/19 04:01) Drug Screen Stat (Urine) (10/20/19 04:04) Urine Culture (10/20/19 04:04) Medications Given in ED Current Medications Medications Dose Ordered Sig/Shaggy Route Start Time Stop Time Status Last Admin Dose Admin Ketorolac Tromethamine 30 mg ONCE ONCE IVP 10/20/19 04:00 10/20/19 04:01 DC 10/20/19 03:56 30 MG Lactated Ringer's 1,000 ml @ 0 mls/hr Q0M ONCE IV 10/20/19 03:37 10/20/19 03:40 DC 10/20/19 03:47 0 MLS/HR Pantoprazole 40 mg ONCE ONCE IV 10/20/19 03:45 10/20/19 03:46 DC 10/20/19 03:47 40 MG Vital Signs/I&O 10/20/19 03:41 Temp 36.1 Pulse 79 Resp 20 B/P (MAP) 115/68 (84) Pulse Ox 100 O2 Delivery Room Air Progress Progress Note #1: Time: 03:47 Progress Note Biliary colic, pancreatitis, GERD/gastritis, renal colic or constipation? Plan to give the patient liter of fluids and get some labs. She rates her pain as a 5 out of 10 presently. We are going to give some pantoprazole and Toradol. Labs to include urine, drug screen, lipase, CRP. Progress Note #2: Time: 04:56 Progress Note Because of no white count elevation and bilirubin of 1.1 we elected to get a CT abdomen pelvis to rule out significant intra-abdominal disease. CT is unremarkable. Ultrasound of the gallbladder reasonable next step outpatient. Her pain is controlled with the Toradol. CRP came back unremarkable. Aseptic vital signs. Nontender abdomen on reexamination. Diagnostic Imaging Diagonstic Imaging: CT (with IV contrast) Plain Films/CT/US/NM/MRI: abdomen, pelvis Comments Normal abdomen and pelvis CT. No calcified gallstones noted. No free fluid or free air. Reviewed: Reviewed by Me Departure Impression Primary Impression: Abdominal pain Qualified Codes: R10.13 - Epigastric pain Disposition: 01 HOME, SELF-CARE Condition: Improved Departure-Patient Inst. Decision time for Depature: 04:59 Referrals: ALEX SERRANO DAVID F MD (PCP/Family) Primary Care Physician Patient Instructions: Acute Abdomen (Belly Pain), Adult (DC), Gallbladder Diet Add. Discharge Instructions: Drink plenty of fluids. If you become nauseated take ondansetron one tablet every 6 hours as needed. If your pain comes back you may use an antacid such as Tums, Rolaids, Mylanta etc. Tylenol 1000 mg every 8 hours as needed for pain. Ibuprofen 800 mg every 8 hours as needed for pain. Pepcid 20 mg twice a day for the next 30 days. Plan to obtain ultrasound of your gallbladder by calling and setting up an appointment. You will need to establish care with a primary care doctor or alternatively you can call Dr. Serrano, General Surgery and he can help you evaluate your gallbladder. Avoid spicy, greasy foods such as dairy. Eat high fiber, bland foods. Scripts Famotidine (Pepcid) 20 Mg Tablet 20 MG PO BID for 30 Days, #60 TAB 0 Refills Prov: NITISH NEW 10/20/19 Ondansetron (Ondansetron Odt) 4 Mg Tab.rapdis 4 MG PO Q6H PRN for NAUSEA-1ST LINE, #10 TAB 0 Refills Prov: NITISH NEW 10/20/19 Copy Copies To 1: ALEX SERRANO DO NITISH NEW October 20, 2019 03:46
[2019-10-20 03:47] LABS: BASOPHILS % (AUTO) 0 % (0-10); EOSINOPHILS # (AUTO) 0.2 10^3/uL (0.0-0.3); EOSINOPHILS % (AUTO) 1 % (0-10); HEMATOCRIT 37 % (35-52); HEMOGLOBIN 12.2 G/DL (11.5-16.0); LYMPHOCYTES # (AUTO) 2.1 X 10^3 (1.0-4.0); LYMPHOCYTES % (AUTO) 12 % (12-44); MEAN CORPUSCULAR HEMOGLOBIN 29 PG (25-34); MEAN CORPUSCULAR HGB CONC 33 G/DL (32-36); MEAN CORPUSCULAR VOLUME 88 FL (80-99); MEAN PLATELET VOLUME 10.4 FL (7.4-10.4); MONOCYTES # (AUTO) 0.5 X 10^3 (0.0-1.0); MONOCYTES % (AUTO) 3 % (0-12); NEUTROPHILS # (AUTO) 14.2 X 10^3 (1.8-7.8); NEUTROPHILS % (AUTO) 84 % (42-75); PLATELET COUNT 279 10^3/uL (130-400); RED CELL DISTRIBUTION WIDTH 14.7 % (10.0-14.5)
[2019-10-20 03:58] LABS: ALBUMIN 4.7 GM/DL (3.2-4.5); CHLORIDE 109 MMOL/L (98-107)
[2019-10-20 03:59] LABS: POTASSIUM 3.3 MMOL/L (3.6-5.0); SODIUM 141 MMOL/L (135-145)
[2019-10-20 04:00] LABS: CALCIUM 9.2 MG/DL (8.5-10.1)
[2019-10-20] MEDS ORDERED: KETOROLAC 30 MG/ML VIAL IVP ONE (04:00)
[2019-10-20 04:01] LABS: GLUCOSE 158 MG/DL (70-105); TOTAL PROTEIN 7.8 GM/DL (6.4-8.2)
[2019-10-20 04:02] LABS: CARBON DIOXIDE 19 MMOL/L (21-32)
[2019-10-20 04:03] LABS: BILIRUBIN,TOTAL 1.1 MG/DL (0.1-1.0)
[2019-10-20 04:04] LABS: ALKALINE PHOSPHATASE 65 U/L (40-136)
[2019-10-20 04:05] LABS: CREATININE SERUM 0.84 MG/DL (0.60-1.30); GFR ESTIMATED > 60
[2019-10-20 04:06] LABS: BUN/CREATININE RATIO 17
[2019-10-20 04:07] LABS: ALANINE AMINOTRANSFERASE 22 U/L (0-55)
[2019-10-20 04:08] LABS: LIPASE 9 U/L (8-78)
[2019-10-20 04:19] LABS: BILIRUBIN,URINE NEGATIVE (NEGATIVE); CLARITY,URINE CLEAR; COLOR,URINE YELLOW; GLUCOSE, URINE (UA) NEGATIVE (NEGATIVE); KETONES,URINE NEGATIVE (NEGATIVE); LEUKOCYTE ESTERASE ,URINE 1+ (NEGATIVE); NITRITE,URINE NEGATIVE (NEGATIVE); PROTEIN,URINE TRACE (NEGATIVE)
[2019-10-20 04:30] LABS: BACTERIA,URINE FEW /HPF
[2019-10-20 04:36] LABS: AMPHETAMINE SCREEN, URINE NEGATIVE (NEGATIVE); BARBITURATE SCREEN URINE NEGATIVE (NEGATIVE); BENZODIAZEPINES SCREEN URINE NEGATIVE (NEGATIVE); CANNABINOID SCREEN, URINE NEGATIVE (NEGATIVE); COCAINE SCREEN URINE NEGATIVE (NEGATIVE); METHADONE STAT NEGATIVE (NEGATIVE); METHAMPHETAMINE SCREEN URINE S NEGATIVE (NEGATIVE); OPIATE SCREEN URINE NEGATIVE (NEGATIVE); OXYCODONE STAT NEGATIVE (NEGATIVE); PROPOXYPHENE STAT NEGATIVE (NEGATIVE); TRICYCLIC ANTIDEPRESSANTS SCRE NEGATIVE (NEGATIVE)
[2019-10-20 04:58] LABS: BAND NEUTROPHILS 3 %; EOSINOPHILS % (MANUAL) 1 %; LYMPHOCYTES % (MANUAL) 14 %; MONOCYTES % (MANUAL) 2 %; NEUTROPHILS % (MANUAL) 80 %; RBC MORPH NORMAL
[2019-10-20] MEDS ORDERED: FAMO-119 PO (05:05)
[2019-10-20] MEDS ORDERED: ONDA4TAB11 PO (05:05)
[2019-10-20] MEDS ORDERED: IOHEXOL 350 MG/ML 100 ML (OMNIPAQUE 350) VIAL IV ONE (05:15)
[2019-10-20] MEDS ORDERED: NS 100 ML (IVPB) BAG IV ONE (05:15)
[2019-10-20] MEDS ORDERED: HOLD METFORMIN - RECEIVED CONTRAST 20 ML VIAL IV SCH (05:15)
[2019-10-20 05:18] VITALS: BP 96/60
--- NOTE | 2019-10-20 07:45 | Diagnostic Imaging Report ---
PROCEDURE: CT abdomen and pelvis with contrast. TECHNIQUE: Multiple contiguous axial images were obtained through the abdomen and pelvis after administration of intravenous contrast. Auto Exposure Controls were utilized during the CT exam to meet ALARA standards for radiation dose reduction. INDICATION: Epigastric pain. COMPARISON: None. FINDINGS: The lung bases are clear. The liver, gallbladder, pancreas, spleen, adrenals, kidneys, collecting systems, bladder are negative. The appendix is not well seen and may be surgically absent. Reproductive structures grossly unremarkable. No free intraperitoneal air or fluid. No lymphadenopathy. No evidence of bowel obstruction. IMPRESSION: No acute CT findings in the abdomen or pelvis. Dictated by: Dictated on workstation # [id number]
== END 2019-10-20 05:18 | disposition home or self-care (01) ==
LOC: EDUNIT# 03:31 → ER 03:34
DX: R10.13 Epigastric pain (principal)
CPT/HCPCS: 36415; 74177; 80053; 80306; 81000; 83690; 84703; 85007; 85027; 86141; 87088

== ENCOUNTER 2021-06-07 22:12 | Emergency (ER) | payer SELFPAY ==
[~2021-06-07] VITALS: Ht 160 cm; Wt 54.0 kg
[~2021-06-07 22:12] MED LIST changes: +FAMO-119 PO; +ONDA4TAB11 PO
[2021-06-07] MEDS ORDERED: IBUPROFEN TABLET 200 MG TAB PO ONE (23:00)
[2021-06-07] MEDS ORDERED: ONDANSETRON 4 MG (ZOFRAN) ORAL DISSOLVE TAB SL ONE (23:00)
[2021-06-08] MEDS ORDERED: ONDA4TAB11 PO (00:48)
--- NOTE | 2021-06-08 00:48 | ED General ---
General Chief Complaint: Fever-Adult/Adol Stated Complaint: FEVER / CHILLS / VOMITING Nursing Triage Note: Sore throat, chills, fever and nausea x 2 days. Source of Information: Patient Exam Limitations: No Limitations History of Present Illness Date Seen by Provider: Jun 07, 2021 Time Seen by Provider: 22:21 Initial Comments .This 26-year-old young lady has not been feeling well for for 5 days. Over the last couple of days she has had worsening symptoms of sore throat, fever, chills, and nausea. She is afebrile at present. She reiterates several times that she "just does not feel well". She has not received vaccination for influenza or COVID-19. Allergies and Home Medications Allergies Coded Allergies: No Known Drug Allergies (Unverified , 02/11/14) Patient Home Medication List Home Medication List Reviewed: Yes Acetaminophen (Acetaminophen) 500 Mg Tablet, 1,000 MG PO Q8HR Prescribed by: CATRACHITA FATIMA on 04/28/19 0900 Docusate Sodium (Docusate Sodium) 100 Mg Capsule, 100 MG PO BID Prescribed by: CATRACHITA FATIMA on 04/28/19 0900 Famotidine (Pepcid) 20 Mg Tablet, 20 MG PO BID Prescribed by: NITISH NEW on 10/20/19 0505 Ferrous Sulfate (Ferrous Sulfate) 325 Mg Tablet, 325 MG PO DAILY@0700 Prescribed by: CATRACHITA FATIMA on 04/28/19 0900 Ibuprofen (Ibu) 600 Mg Tablet, 600 MG PO Q6HR Prescribed by: CATRACHITA FATIMA on 04/28/19 0900 Ondansetron (Ondansetron Odt) 4 Mg Tab.rapdis, 4 MG PO Q6H PRN for NAUSEA-1ST LINE Prescribed by: NITISH NEW on 10/20/19 0505 Ondansetron (Ondansetron Odt) 4 Mg Tab.rapdis, 4 MG PO Q4H PRN for NAUSEA/VOMITING Prescribed by: RAISA VINSON on 06/08/21 0048 Oxycodone Hcl (Oxycodone IR) 5 Mg Tab, 5 MG PO Q4HR Prescribed by: CATRACHITA FATIMA on 04/28/19 0900 Vit W-Ca,Fe,FA(<1 mg) ( Vitamins) 1 Each Tablet, 1 EACH PO DAILY, (Reported) Entered as Reported by: RITA RICH on 02/27/19 1009 [Benzocaine/Menthol] 56 ML AEROSOL, 56 ML TP UD PRN for PAIN- SEE INSTRUCTIONS Prescribed by: CATRACHITA FATIMA on 04/28/19 0900 Review of Systems Review of Systems Constitutional: see HPI EENTM: see HPI Respiratory: cough Cardiovascular: no symptoms reported Gastrointestinal: see HPI Genitourinary: no symptoms reported : No Musculoskeletal: muscle pain Skin: no symptoms reported Psychiatric/Neurological: No Symptoms Reported Hematologic/Lymphatic: No Symptoms Reported Immunological/Allergic: no symptoms reported Past Kldwaiq-Cdfdtc-Cqhxtk Hx Patient Social History Tobacco Use?: No Substance use?: No Alcohol Use?: No Seasonal Allergies Seasonal Allergies: No Past Medical History Surgery/Hospitalization HX: none Surgeries: Yes Respiratory: No Cardiac: No Neurological: No : No Sexually Transmitted Disease: No HIV/AIDS: No Genitourinary: No Gastrointestinal: No Musculoskeletal: No Endocrine: No HEENT: No Cancer: No Psychosocial: No Integumentary: No Blood Disorders: No Adverse Reaction/Blood Tranf: No Physical Exam Vital Signs Vital Signs - First Documented 06/07/21 22:53 Temp 37.0 Pulse 103 Resp 18 B/P (MAP) 133/91 (105) Pulse Ox 98 O2 Delivery Room Air Capillary Refill : Less Than 3 Seconds Height, Weight, BMI Height: 5'0.00" Weight: 146lbs. 0.2oz. 66.123558vg; 21.00 BMI Method: General Appearance: No Apparent Distress, WD/WN, Thin HEENT: PERRL/EOMI, TMs Normal, Normal ENT Inspection, Pharyngeal Erythema (Mild) Neck: Normal Inspection Respiratory: Lungs Clear, Normal Breath Sounds, No Accessory Muscle Use Cardiovascular: Regular Rate, Rhythm, No Edema, No Murmur Gastrointestinal: Normal Bowel Sounds, Soft Extremity: Normal Inspection, No Pedal Edema Neurologic/Psychiatric: Alert, Oriented x3, No Motor/Sensory Deficits, Normal Mood/Affect, cook fish eggs II-XII Norm as Tested Skin: Normal Color, Warm/Dry Progress/Results/Core Measures Suspected Sepsis SIRS Temperature: Pulse: 103 Respiratory Rate: 18 Blood Pressure 133 /91 Mean: 105 Results/Orders Lab Results Laboratory Tests Test 06/07/21 22:53 Range/Units Influenza Type A (RT-PCR) Detected H Not Detecte Influenza Type B (RT-PCR) Not Detected Not Detecte SARS-CoV-2 RNA (RT-PCR) Not Detected Not Detecte My Orders Orders - RAISA FLORES MD Covid 19 Inhouse Test (06/07/21 22:21) Influenza A And B By Pcr (06/07/21 22:21) Ondansetron Oral Dissolve Tab (Zofran (06/07/21 23:00) Ibuprofen Tablet (Motrin Tablet) (06/07/21 23:00) Medications Given in ED Vital Signs/I&O 06/07/21 06/07/21 06/08/21 22:53 23:39 01:01 Temp 37.0 36.2 Pulse 103 96 Resp 18 16 B/P (MAP) 133/91 (105) 126/94 Pulse Ox 98 98 O2 Delivery Room Air Room Air Room Air Capillary Refill : Less Than 3 Seconds Blood Pressure Mean: 105 Progress Note : Progress Note Patient received Zofran and ibuprofen. Influenza screen was positive, Covid screen was negative. She is too far into the illness to benefit from Tamiflu. See discharge instructions. Departure Impression Primary Impression: Influenza A Disposition: 01 HOME, SELF-CARE Condition: Improved Departure-Patient Inst. Decision time for Depature: 00:46 Referrals: ALEXI GAMEZ MD (PCP/Family) Primary Care Physician Patient Instructions: Flu, Adult (DC) Add. Discharge Instructions: Drink plenty of clear liquids. Use Zofran (ondansetron) as prescribed for nausea and vomiting. You may use Tylenol and/or ibuprofen for pain and fever. Call with questions or concerns. Return to the ER if you have worsening symptoms. Please remain in isolation away from others to avoid spread of flu until you have recovered from your symptoms for 48 hours. All discharge instructions reviewed with patient and/or family. Voiced understanding. Scripts Ondansetron (Ondansetron Odt) 4 Mg Tab.rapdis 4 MG PO Q4H PRN for NAUSEA/VOMITING, #10 TAB Prov: RAISA FLORES MD 06/08/21 RAISA FLORES MD Jun 08, 2021 00:48
[2021-06-08 01:01] VITALS: BP 126/94
== END 2021-06-08 01:02 | disposition home or self-care (01) ==
LOC: EDUNIT# 22:12 → ER 22:13
DX: J09.X2 Influenza due to identified novel influenza A virus with other respiratory manifestations (principal); Z20.822 Contact with and (suspected) exposure to COVID-19
CPT/HCPCS: 87636; 99283

== ENCOUNTER 2022-02-17 05:26 | Inpatient (IN) | payer MEDICAID ==
[~2022-02-17] VITALS: Ht 160 cm; Wt 74.5 kg
[2022-02-17] VITALS (18 sets, daily range): BP systolic 103–159; BP diastolic 60–88
[2022-02-17] MEDS ORDERED: CATHETER FLUSH 10 ML SYR IV PRN (05:45)
[2022-02-17] MEDS ORDERED: MINERAL OIL 30 ML UDC TOP PRN (05:45)
[2022-02-17] MEDS ORDERED: NALOXONE 0.4 MG/ML 1 ML (NARCAN) VIAL IV PRN ×3 (05:45→13:00)
[2022-02-17] MEDS ORDERED: LIDOCAINE/EPI 2% 1:200,00 (XYLOCAINE) 10 ML VIAL INJ PRN (05:45)
[2022-02-17] MEDS ORDERED: D5 LR IV SOLUTION 1,000 ML IV SCH (05:45)
[2022-02-17] MEDS ORDERED: LACTATED RINGERS 1,000 ML IV ONE ×2 (05:45→13:00)
[2022-02-17] MEDS ORDERED: fentaNYL 2 mcg/ml BUPIVA 0.125 100 ML IV SCH (05:45)
[2022-02-17 05:50] LABS: BASOPHILS # (AUTO) 0.1 10^3/uL (0.0-0.1); BASOPHILS % (AUTO) 0 % (0-10); EOSINOPHILS # (AUTO) 0.2 10^3/uL (0.0-0.3); EOSINOPHILS % (AUTO) 1 % (0-10); HEMATOCRIT 39 % (35-52); HEMOGLOBIN 13.1 g/dL (11.5-16.0); LYMPHOCYTES # (AUTO) 3.8 10^3/uL (1.0-4.0); LYMPHOCYTES % (AUTO) 22 % (12-44); MEAN CORPUSCULAR HEMOGLOBIN 30 pg (25-34); MEAN CORPUSCULAR HGB CONC 33 g/dL (32-36); MEAN CORPUSCULAR VOLUME 89 fL (80-99); MEAN PLATELET VOLUME 11.5 fL (9.0-12.2); MONOCYTES # (AUTO) 1.3 10^3/uL (0.0-1.0); MONOCYTES % (AUTO) 8 % (0-12); NEUTROPHILS # (AUTO) 11.7 10^3/uL (1.8-7.8); NEUTROPHILS % (AUTO) 68 % (42-75); PLATELET COUNT 249 10^3/uL (130-400); WHITE BLOOD COUNT 17.2 10^3/uL (4.3-11.0)
[2022-02-17] MEDS ORDERED: CATHETER FLUSH 10 ML SYR IV SCH (06:00)
[2022-02-17] MEDS ORDERED: OXYTOCIN PRE-MIX DRIP 500 ML IV ONE (06:14)
[2022-02-17 06:29] LABS: BILIRUBIN,URINE NEGATIVE (NEGATIVE); CLARITY,URINE CLEAR; COLOR,URINE YELLOW; GLUCOSE, URINE (UA) NEGATIVE (NEGATIVE); KETONES,URINE NEGATIVE (NEGATIVE); LEUKOCYTE ESTERASE ,URINE NEGATIVE (NEGATIVE); NITRITE,URINE NEGATIVE (NEGATIVE); PROTEIN,URINE NEGATIVE (NEGATIVE)
--- NOTE | 2022-02-17 06:32 | History & Physical-OB ---
OB - Chief Complaint & HPI Date/Time Date of Admission: Date of Admission: Feb 17, 2022 at 05:42 Date seen by a Provider: Feb 17, 2022 Time Seen by a Provider: 06:20 Chief Complaint/History OB-Reason for Admission/Chief: Onset of Labor Hx : 2 Hx Para: 1 Expected Date of Delivery: Feb 19, 2022 Gestational Age in Weeks: 39 Gestational Age in Days: 5 Other reason for admission: 26 yo at 39w5d started having contractions yesterday morning about every 8 minutes that were not painful. Overnight contractions became more painful around 1 am which brought her in. She denies bleeding, leaking fluid and states baby has been moving normally. History of Labs O+, antibody neg, RI, HIV/HepB/RPR NR. GC/chlamydia neg. GBS neg. Allergies and Home Medications Allergies Coded Allergies: No Known Drug Allergies (Unverified , 02/11/14) Patient Home Medication List Home Medication List Reviewed: Yes Vit W-Ca,Fe,FA(<1 mg) ( Vitamins) 1 Each Tablet, 1 EACH PO DAILY, (Reported) Entered as Reported by: RITA RICH on 02/27/19 1009 Last Action: Reviewed Discontinued Medications Acetaminophen (Acetaminophen) 500 Mg Tablet, 1,000 MG PO Q8HR Prescribed by: CATRACHITA FATIMA on 04/28/19 09 Last Action: Discontinued Docusate Sodium (Docusate Sodium) 100 Mg Capsule, 100 MG PO BID Prescribed by: CATRACHITA FATIMA on 04/28/19 09 Last Action: Discontinued Famotidine (Pepcid) 20 Mg Tablet, 20 MG PO BID Prescribed by: NITISH NEW on 10/20/19 0505 Last Action: Discontinued Ferrous Sulfate (Ferrous Sulfate) 325 Mg Tablet, 325 MG PO DAILY@0700 Prescribed by: CATRACHITA FATIMA on 04/28/19 09 Last Action: Discontinued Ibuprofen (Ibu) 600 Mg Tablet, 600 MG PO Q6HR Prescribed by: CATRACHITA FATIMA on 04/28/19 09 Last Action: Discontinued Ondansetron (Ondansetron Odt) 4 Mg Tab.rapdis, 4 MG PO Q6H PRN for NAUSEA-1ST L INE Prescribed by: NITISH NEW on 10/20/19 0505 Last Action: Discontinued Ondansetron (Ondansetron Odt) 4 Mg Tab.rapdis, 4 MG PO Q4H PRN for NAUSEA/VOMITING Prescribed by: RAISA VINSON on 06/08/21 0048 Last Action: Discontinued Oxycodone Hcl (Oxycodone IR) 5 Mg Tab, 5 MG PO Q4HR Prescribed by: CATRACHITA FATIMA on 04/28/19899 Last Action: Discontinued [Benzocaine/Menthol] 56 ML AEROSOL, 56 ML TP UD PRN for PAIN- SEE INSTRUCTIONS Prescribed by: CATRACHITA FATIMA on 04/28/19899 Last Action: Discontinued OB - History Hx of Present Care: Yes Ultrasounds: Normal mid trimester US Obstetrical Complications: None Medical Complications: None Information Induced Hypertension: No Maternal Gestational Diabetes: No Hemorrhage: No Obstetrical History Hx : 2 Hx Para: 1 Hx # Term Pregnancies: 1 Hx # Pregnancies: 0 Number of Living Children: 1 Hx Termination: No Hx Multiple Gestation: No Hx Ectopic : No Hx Stillbirth: No Hx Complication: No Hx Induced Hypertens: No Hx Maternal Gestational Diabet: No Hx Hemorrhage: No Delivery History Hx Dystocia: No Hx Forceps Assisted Delivery: No Hx Vacuum Extraction Assisted: No Hx Placenta Abnormality: No Hx Distress: No Hx Large For Gestational Age I: No Hx Small for Gestational Age I: No Hx Section: No Hx Vaginal Delivery Post C-Sec: No Hx Blood Disorders: No Adverse Rxn to Tranfusion: No Patient Past Medical History PMHx: Denies SurgHx: [place] teeth extraction Social History/Family History Alcohol Use: Denies Use Recreational Drug Use: No Smoking Cessation: Never smoker 2nd Hand Smoke Exposure: No Immunizations Tetanus Booster (TDap): Less than 5yrs Rubella: immune RPR/VDRL: Negative GBS Status: Negative HBsAG: Negative OB - Admission Exam Physical Exam HEENT: NCAT Abdomen: Gravid Cervical Dilatation: 8cm (per nursing exam at 0550) Contractions on Admission: < 5 Minutes Apart Date/Time Contractions Began;: 02/16/2022 Frequency of Contractions: 8 min Labs Laboratory Tests Test 02/17/22 05:40 Range/Units White Blood Count 17.2 H 4.3-11.0 10^3/uL Red Blood Count 4.41 3.80-5.11 10^6/uL Hemoglobin 13.1 11.5-16.0 g/dL Hematocrit 39 35-52 % Mean Corpuscular Volume 89 80-99 fL Mean Corpuscular Hemoglobin 30 25-34 pg Mean Corpuscular Hemoglobin Concent 33 32-36 g/dL Red Cell Distribution Width 13.7 10.0-14.5 % Platelet Count 249 130-400 10^3/uL Mean Platelet Volume 11.5 9.0-12.2 fL Immature Granulocyte % (Auto) 1 % Neutrophils (%) (Auto) 68 42-75 % Lymphocytes (%) (Auto) 22 12-44 % Monocytes (%) (Auto) 8 0-12 % Eosinophils (%) (Auto) 1 0-10 % Basophils (%) (Auto) 0 0-10 % Neutrophils # (Auto) 11.7 H 1.8-7.8 10^3/uL Lymphocytes # (Auto) 3.8 1.0-4.0 10^3/uL Monocytes # (Auto) 1.3 H 0.0-1.0 10^3/uL Eosinophils # (Auto) 0.2 0.0-0.3 10^3/uL Basophils # (Auto) 0.1 0.0-0.1 10^3/uL Immature Granulocyte # (Auto) 0.2 H 0.0-0.1 10^3/uL OB - Assessment/Plan/Diagnosis Assessment Admission Dx Term intrauterine 39 weeks gestation Active labor GBS negative Blood type O+ Rubella immune Admission Status: Inpatient Order (span 2 midnights) Reason for Inpatient Admission: Labor, delivery and course Plan Plan: Expectant Management PONCHO CEJA MD Feb 17, 2022 06:32
[2022-02-17 06:44] LABS: BACTERIA,URINE NEGATIVE /HPF; RBC,URINE 0-2 /HPF
--- NOTE | 2022-02-17 07:53 | OB Labor & Delivery Record ---
Vag Delivery Note Vag Delivery Note Date of Delivery: 02/17/22 Preoperative Diagnosis: Robert Gomez is a (26 /Para 2 / 1, Gestational Age (wks)39with 5 days Postoperative Diagnosis: Same Surgeon: PONCHO CEJA Glycerin Operator: Bhargav Barrientos, OMS4 Anesthesia: Epidural Delivery Type: Spontaneous vaginal Findings: Viable female , apgars 9/9, weight pending Lacerations: first degree perineal laceration Intact placenta with 3 vessel cord. Bandolero cord noted. No nuchal cord or shoulder dystocia. Estimated Blood Loss: 250 ml Complications: None Condition: Stable Description of Procedure: The patient is a 26 year old female who presented in active labor. She was admitted and informed consent was obtained. Her labor course was unremarkable. She progressed to complete dilatation and began to push. She was then set up for delivery. The 's head was delivered atraumatically in the OA position. The shoulders and remainder of the infant's body were then delivered without difficulty. Upon delivery, the was placed on maternal abdomen. After a delay, the cord was doubly clamped and cut and the infant remained on maternal abdomen transitioning. An intact placenta with 3-vessel cord delivered via [place]ka and there was found to be minimal bleeding.~ Vigorous fundal massage was performed and the fundus was found to be firm. IV oxytocin was given. Examination of the vagina and perineum revealed a first degree perineal laceration repaired in the usual fashion with 3-0 vicryl rapide suture. Following the repair, sponge, instrument and needle counts were correct. Mom and baby were both in stable condition in the labor suite. Vitals - Labs Vital Signs - I&O Vital Signs Date Time Temp Pulse Resp B/P (MAP) Pulse Ox O2 Delivery O2 Flow Rate FiO2 02/17/22 07:13 113 18 143/87 (105) 99 Room Air 02/17/22 07:09 102 18 159/86 (110) 99 Room Air 02/17/22 07:06 98 18 132/88 (103) 99 Room Air 02/17/22 07:03 101 18 143/82 (102) 98 Room Air 02/17/22 07:01 97 18 130/82 (98) 99 Room Air 02/17/22 06:58 102 18 128/76 (93) 97 Room Air 02/17/22 05:45 35.9 80 18 131/84 (100) 100 Room Air 02/17/22 05:45 35.9 80 18 100 Room Air Labs Laboratory Tests 02/17/22 05:30: Urine Color YELLOW, Urine Clarity CLEAR, Urine pH 7.0, Urine Specific Thiells 1.020, Urine Protein NEGATIVE, Urine Glucose (UA) NEGATIVE, Urine Ketones NE GATIVE, Urine Nitrite NEGATIVE, Urine Bilirubin NEGATIVE, Urine Urobilinogen 0.2, Urine Leukocyte Esterase NEGATIVE, Urine RBC (Auto) TRACE-IH, Urine RBC 0- 2, Urine WBC NONE, Urine Squamous Epithelial Cells 2-5, Urine Crystals NONE, Ur ine Bacteria NEGATIVE, Urine Casts NONE, Urine Mucus NEGATIVE, Urine Culture Indicated NO 02/17/22 05:40: White Blood Count 17.2H, Red Blood Count 4.41, Hemoglobin 13.1, Hematocrit 39, Mean Corpuscular Volume 89, Mean Corpuscular Hemoglobin 30, Mean Corpuscular Hemoglobin Concent 33, Red Cell Distribution Width 13.7, Platelet Count 249, Mean Platelet Volume 11.5, Immature Granulocyte % (Auto) 1, Neutrophils (%) (Auto) 68, Lymphocytes (%) (Auto) 22, Monocytes (%) (Auto) 8, Eosinophils (%) (Auto) 1, Basophils (%) (Auto) 0, Neutrophils # (Auto) 11.7H, Lymphocytes # (Auto) 3.8, Monocytes # (Auto) 1.3H, Eosinophils # (Auto) 0.2, Basophils # (Auto) 0.1, Immature Granulocyte # (Auto) 0.2H PONCHO CEJA MD Feb 17, 2022 07:53
[2022-02-17] MEDS ORDERED: BENZOCAINE/MENTHOL (DERMOPLAST) 56 ML CAN TP PRN (08:00)
[2022-02-17] MEDS: IBUPROFEN 600 MG (MOTRIN) TAB PO PRN ×3 (08:16→21:35)
[2022-02-17] MEDS: OXYTOCIN PRE-MIX DRIP 500 ML IV SCH ×2 (09:06→09:07)
[2022-02-17] MEDS: DOCUSATE SODIUM 100 MG (COLACE) CAP PO SCH ×2 (10:19→21:35)
[2022-02-17] MEDS: WITCH HAZEL(TUCKS) 40 EA JAR TOP PRN (10:20)
[2022-02-17] MEDS ORDERED: ONDANSETRON 4 MG/2 ML (SDV) Z0FRAN IV PRN (13:00)
[2022-02-17] MEDS ORDERED: METOCLOPRAMIDE INJ 10 MG/2 ML (REGLAN) IV PRN (13:00)
[2022-02-17] MEDS ORDERED: diphenhydrAMINE 50 MG/ML INJ (BENADRYL) IV PRN (13:00)
[2022-02-17] MEDS ORDERED: fentaNYL 2 mcg/ml BUPIVA 0.125 100 ML EPI SCH (13:00)
[2022-02-17] MEDS: CATHETER FLUSH 10 ML SYR IV SCH ×2 (13:45→22:00)
[2022-02-18] MEDS ORDERED: ACETAMINOPHEN 500 MG TAB (TYLENOL) PO PRN ×2 (02:15→02:30)
[2022-02-18] MEDS ORDERED: ACETAMINOPHEN 500 MG TAB (TYLENOL) ONE (02:15)
[2022-02-18 03:20] VITALS: BP 124/68
[2022-02-18] MEDS: IBUPROFEN 600 MG (MOTRIN) TAB PO PRN (03:20)
[2022-02-18] MEDS: WITCH HAZEL(TUCKS) 40 EA JAR TOP PRN (03:20)
[2022-02-18 06:11] LABS: BASOPHILS # (AUTO) 0.1 10^3/uL (0.0-0.1); BASOPHILS % (AUTO) 1 % (0-10); EOSINOPHILS # (AUTO) 0.2 10^3/uL (0.0-0.3); EOSINOPHILS % (AUTO) 1 % (0-10); HEMATOCRIT 33 % (35-52); HEMOGLOBIN 10.8 g/dL (11.5-16.0); LYMPHOCYTES # (AUTO) 3.6 10^3/uL (1.0-4.0); LYMPHOCYTES % (AUTO) 21 % (12-44); MEAN CORPUSCULAR HEMOGLOBIN 29 pg (25-34); MEAN CORPUSCULAR HGB CONC 33 g/dL (32-36); MEAN CORPUSCULAR VOLUME 89 fL (80-99); MEAN PLATELET VOLUME 11.8 fL (9.0-12.2); MONOCYTES # (AUTO) 1.1 10^3/uL (0.0-1.0); MONOCYTES % (AUTO) 6 % (0-12); NEUTROPHILS # (AUTO) 12.4 10^3/uL (1.8-7.8); NEUTROPHILS % (AUTO) 71 % (42-75); PLATELET COUNT 225 10^3/uL (130-400); WHITE BLOOD COUNT 17.5 10^3/uL (4.3-11.0)
[2022-02-18] MEDS: DOCUSATE SODIUM 100 MG (COLACE) CAP PO SCH (07:43)
[2022-02-18 07:45] VITALS: BP 111/72
[2022-02-18] MEDS ORDERED: IBUP-844 PO (08:02)
--- NOTE | 2022-02-18 08:03 | Discharge Inst-Women's Service ---
Discharge Inst-Women's Serv Depart Medication/Instructions New, Converted or Re-Newed RX: Transmitted to Pharmacy ([facility]) Consults/Follow Up Additional Follow Up: Yes (Dr Wallace within 6 weeks.) Activity Driving Instructions: No Driving for 1 Week Nothing Inside Vagina: No [place] (for 6 weeks) Diet Discharge Diet: Regular Diet Return to The Hospital For: as below Symptoms to Report to : Bleeding Excessive, Fever Over 101 Degrees F, Vaginal Discharge Foul For Any Problems or Questions: Contact Your Physician MICHELA CARTER MD Feb 18, 2022 08:03
--- NOTE | 2022-02-18 08:07 | Discharge Summary ---
Diagnosis/Chief Complaint Date of Admission Feb 17, 2022 at 05:42 Date of Discharge February 18, 2022 Admission Diagnosis Admission Diagnosis 1. Intrauterine at 39 weeks 5 days gestation Discharge Diagnosis 1. Intrauterine at 39 weeks 5 days gestation Chief Complaint/HPI Chief Complaint/HPI 26-year-old 2 now term 2 who initially presented to labor and delivery during the deckhand crab boat of February 17 in active labor. She was noted to be GBS negative through clinic where Dr. Wallace had followed her. Her care was essentially unremarkable. Discharge Summary-OBS Procedures 1. Epidural per anesthesia 2. Spontaneous vaginal delivery 3. Repair of first degree perineal laceration Discharge Physical Examination Allergies: Coded Allergies: No Known Drug Allergies (Unverified , 02/11/14) Vitals & I&Os Intake and Output 02/18/22 00:00 Intake Total 600 ml Balance 600 ml Vital Sign - Last 12Hours Date Time Temp Pulse Resp B/P (MAP) Pulse Ox O2 Delivery O2 Flow Rate FiO2 02/18/22 03:20 36.4 88 18 124/68 (86) 98 Room Air General Appearance: No Acute Distress Respiratory: Clear to Auscultation Cardiovascular: Regular Rate Abdominal: Soft (with uterus firm) Hospital Course Following admission she underwent labor course. She ultimately went on to completion and delivered over a first-degree perineal laceration a term viable female. received Apgars of 9 at 1 minute and 9 at 5 minutes. Following delivery she underwent routine care orders. She had no complications during the remainder of hospital stay. She had occasional cramping which was controlled with ibuprofen. She had hemoglobin in the morning of February 18 of 10.8 compared to admission of 13.1. Patient was noted to tolerate regular diet. She had no shortness of breath, leg pain or chest discomfort. She had all questions answered and was felt ready for dismissal during a late morning of February 18, 2022. She will follow-up with Dr. Wallace within 6 weeks. Labs Laboratory Tests 02/18/22 05:29: White Blood Count 17.5H, Red Blood Count 3.67L, Hemoglobin 10.8L, Hematocrit 33L , Mean Corpuscular Volume 89, Mean Corpuscular Hemoglobin 29, Mean Corpuscular Hemoglobin Concent 33, Red Cell Distribution Width 14.0, Platelet Count 225, Mean Platelet Volume 11.8, Immature Granulocyte % (Auto) 1, Neutrophils (%) (Auto) 71, Lymphocytes (%) (Auto) 21, Monocytes (%) (Auto) 6, Eosinophils (%) (Auto) 1, Basophils (%) (Auto) 1, Neutrophils # (Auto) 12.4H, Lymphocytes # (Auto) 3.6, Monocytes # (Auto) 1.1H, Eosinophils # (Auto) 0.2, Basophils # (Auto) 0.1, Immature Granulocyte # (Auto) 0.1 Discharge Instructions to patient/family Please see electronic discharge instructions given to patient. Discharge Medications Reviewed and agree with Discharge Medication list on patient's Discharge Instruction sheet Copy Copies To 1: PONCHO WALLACE MD, DANIEL J MD Feb 18, 2022 08:07
--- NOTE | 2022-02-18 10:02 | Anesthesia-Regional Post-Op ---
Regional Patient Condition Mental Status: Alert, Oriented x3 Circulation: Same as Pre-Op Headache: Absent Sensation: Full Recovery Motor Block: Absent Post Op Complications Complications None Follow Up Care/Instructions Patient Instructions None needed. Anesthesia/Patient Condition Patient is doing well, no complaints, stable vital signs, no apparent adverse anesthesia problems. No complications reported per nursing. LARISA PAUL CRNA Feb 18, 2022 10:02
[2022-02-18 11:02] VITALS: BP 111/72
== END 2022-02-18 12:30 | disposition home or self-care (01) | DRG 807 ==
LOC: WSo 05:26 → LDRP 05:27 → WSo 05:41 → LDRP 05:42
PROVIDERS: ADMIT Family Medicine; ATTEND Family Medicine
PROC: 10E0XZZ Delivery of Products of Conception, External Approach (ICD-10-PCS; principal; 2022-02-17)
PROC: 0HQ9XZZ Repair Perineum Skin, External Approach (ICD-10-PCS; 2022-02-17)
DX: O70.0 First degree perineal laceration during delivery (principal); Z37.0 Single live birth; Z3A.39 39 weeks gestation of pregnancy
CPT/HCPCS: 36415; 81000; 85025; 86850; 86900; 86901; 99212

== ENCOUNTER 2022-11-25 18:46 | Emergency (ER) | payer MEDICAID ==
[~2022-11-25] VITALS: Ht 160 cm; Wt 68.4 kg
[2022-11-25] MEDS ORDERED: TETRACAINE 0.5% OPHTH SOLN 5 ML BTL OP ONE (19:00)
--- NOTE | 2022-11-25 19:12 | ED EENT ---
History of Present Illness General Chief Complaint: Eye Problems Stated Complaint: RIGHT EYE PAIN Nursing Triage Note: pt amb to ft2 with cc of right eye pain, along with switching, swelling, and pressure. pt was sent from [facility]. pt stated that pain started Tuesday night. Source: patient Exam Limitations: no limitations History of Present Illness Date Seen by Provider: Nov 25, 2022 Time Seen by Provider: 19:09 Initial Comments Patient Is a 27-year-old female presents ED with right eye pressure and pain. Pain started on Tuesday. Gradual pain. Patient reports twitching of her eyeball and eyelid. She reports a sensitive to light. Reports some mild drainage. She does have a pain to the right side of her head. Was seen at [facility] and sent to the ER for further eye exam. Was not able to check pressure. 2069 right eye 20/20 left eye 20/20 bilateral. Does wear glasses. She states naturally she has some decreased vision in her right eye. She denies of any acute changes. She denies any specific injury. Denies of using any drops. She denies fever, chills, runny nose, cough, unilateral muscle weakness. She does report some photophobia. She reports some pain with eye movement Allergies and Home Medications Allergies Coded Allergies: No Known Drug Allergies (Unverified , 02/11/14) Patient Home Medication List Home Medication List Reviewed: Yes Ibuprofen (Ibu) 600 Mg Tablet, 600 MG PO Q6HR PRN for PAIN-MILD (1-4) Prescribed by: MICHELA CARTER on 02/18/22 0802 Vit W-Ca,Fe,FA(<1 mg) ( Vitamins) 1 Each Tablet, 1 EACH PO DAILY, (Reported) Entered as Reported by: RITA RICH on 02/27/19 1009 Review of Systems Review of Systems Constitutional: No chills, No diaphoresis, No dizziness, No fever, No malaise Eyes: Denies Blindness, Denies Blurred Vision; Drainage; Denies Decreased Acuity; Inflammation, Pain Ears: Denies Dizziness, Denies Pain Nose: denies congestion Mouth: denies clots, denies loose teeth Throat: denies pain, denies swelling Respiratory: No cough, No dyspnea on exertion Cardiovascular: No chest pain Gastrointestinal: No abdominal pain, No diarrhea, No nausea, No vomiting Musculoskeletal: No back pain, No joint pain Skin: No change in color, No change in hair/nails Past Festqph-Qjuuer-Pzccqm Hx Patient Social History Tobacco Use?: No Substance use?: Yes Substance type: Marijuana Substance frequency: Once in a while Alcohol Use?: Yes Alcohol Frequency: Once in a while Immunizations Up To Date Tetanus Booster (TDap): Less than 5yrs Seasonal Allergies Seasonal Allergies: No Past Medical History Surgery/Hospitalization HX: none Surgeries: Yes Respiratory: No Cardiac: No Neurological: No Sexually Transmitted Disease: No HIV/AIDS: No Genitourinary: No Gastrointestinal: No Musculoskeletal: No Endocrine: No HEENT: No Cancer: No Psychosocial: No Integumentary: No Blood Disorders: No Adverse Reaction/Blood Tranf: No Physical Exam Vital Signs Vital Signs - First Documented 11/25/22 18:55 Pulse 71 B/P (MAP) 120/84 (96) Pulse Ox 100 O2 Delivery Room Air Height, Weight, BMI Height: 5'0.00" Weight: 146lbs. 0.2oz. [id number]; 26.00 BMI Method: General Appearance: WD/WN, no apparent distress Eyes: right eye other (Mild abrasion right lower outer cornea and into the conjunctiva. No significant erythematous injection. Pupils reactive to light. Extraocular movements intact. Mild photophobia. No evidence of proptosis. Negative Fabian sign.); left eye normal inspection, left eye PERRL, left eye EOMI Ears: bilateral ear auricle normal, bilateral ear canal normal, bilateral ear TM normal Nose: normal inspection Mouth/Throat: normal mouth inspection, pharynx normal, dental tenderness Neck: non-tender, full range of motion, supple Cardiovascular: regular rate, rhythm, no edema, no gallop, no JVD Respiratory: chest non-tender, lungs clear, normal breath sounds, no respiratory distress Gastrointestinal: normal bowel sounds, non tender, soft, no organomegaly Neurologic/Psychiatric: special ed assistant II-XII nml as tested, no motor/sensory deficits, alert, normal mood/affect, oriented x 3 Skin: normal color, warm/dry Progress/Results/Core Measures Results/Orders My Orders Orders - SUE NNUES Tetracaine 0.5% Ophth Soln (Tetravisc 0. (11/25/22 19:00) Fluorescein Strips (Fdvev-S-Yoeswt) (11/25/22 19:15) Ct Head Wo (11/25/22 19:08) Medications Given in ED Vital Signs/I&O Blood Pressure Mean: 96 Departure Communication (PCP) Patient is a 27-year-old female presents ED with pressure to the right eye. Denies of any specific injury. She has had similar type discomfort in the past. Patient Was sent over from [facility] concerning for increase orbital pressure. No history of glaucoma. She does wear glasses. She has used contacts in the past but states she has developed red eyes. She reports she is nearsighted. She has a thickened lens on the right. She currently follows [facility]. She does have some very subtle proptosis of the right eye. No history of Graves' disease. She denies of any changes in vision. She reports this eye pressure an d reports twitching of her eyeball. Patient reports right-sided head pain. Denies worst headache of her life. No focal neural deficits. no eye drainage or obvious erythema. No drooping of the eyelid. Pupils reactive light but does have some photophobia. Visual acuity right eye 20/70, left eye 20/20, bilateral 20/20. Pressure average right eye 17, pressure average left eye 18 . extraocular movements intact. Pupils reactive to light. No evidence of erythematous injection. Fluorescein eye strip was used and applied small amount of tetracaine. Potential abrasion to the right lower outer third. Negative Fabian sign. No evidence of hyphema. No evidence of foreign body. No evidence of stye. No lacrimal tenderness. Due to the head pain and subtle proptosis CT scan of the head was ordered to rule out any mass or obvious bleed. CT scan of the head shows no acute intracranial process. Did note Slightly elongated right globe compared to the left. This finding appears slightly more prominent than on the prior study. There is no adjacent fluid collection or inflammation. There is stable tortuosity of the intraorbital right optic nerve. Slight changes from a previous CT scan in 2017. Consulted Wilder Payne at [facility] regarding patient. Recommended at this time follow-up in the office lauri morning. Patient will need a thorough exam. No further imaging needed at this time. No antibiotics. Does not appear inflammatory or infectious at this time. CT scan findings likely more chronic. Pain may be related to the abrasion, but wanting a more thorough exam. Any worsening symptoms return back to ED for further evaluation such as visual loss, increasing head pain. No temporal tenderness. No history of autoimmune diseases. Impression Primary Impression: Corneal abrasion Disposition: HOME, SELF-CARE Condition: Stable Departure-Patient Inst. Decision time for Depature: 19:56 Referrals: [facility] (PCP/Family) Primary Care Physician Patient Instructions: Corneal Abrasion (DC) Add. Discharge Instructions: Recommend following up with [facility] eye care tomorrow for further evaluation. If any worsening pain, loss of vision to return back to ED All discharge instructions reviewed with patient and/or family. Voiced understanding. SUE NUNES Nov 25, 2022 19:12
[2022-11-25] MEDS ORDERED: FLUORESCEIN (FLUOR-I-STRIPS) 1 MG STRP OP ONE (19:15)
--- NOTE | 2022-11-25 19:56 | Diagnostic Imaging Report ---
CLINICAL INDICATION: Patient with right eye and head pain. Exam: Axial CT scan of the brain without IV contrast with coronal and sagittal reformatted images. Auto Exposure Controls were utilized during the CT exam to meet ALARA standards for radiation dose reduction. Comparison: CT scan of the neck soft tissue with contrast dated 10/08/2016. Findings: There is no evidence of acute cerebral infarct, intracranial hemorrhage, or gross mass effect. The brain parenchymal volume appears appropriate for patient's age. There is normal huerta-white matter distinction. There is no significant midline shift or herniation. There is no evidence of hydrocephalus. The basal cisterns are unremarkable. It appears that the right globe is slightly elongated compared to the left side. This appearance is slightly more prominent in comparison to prior study. Slightly tortuous intraorbital optic nerve is again noted on the right side. There is no periorbital or retrobulbar fat stranding, fluid collection or mass. The skull and extracranial soft tissue are unremarkable. The paranasal sinuses are unremarkable. Temporal bones show no significant abnormality. Impression: 1: There is no CT evidence of acute intracranial process. 2: Slightly elongated right globe compared to the left. This finding appears slightly more prominent than on the prior study. There is no adjacent fluid collection or inflammation. There is stable tortuosity of the intraorbital right optic nerve. Consultation with client success director may help better evaluate and may be related to vision issues. Dictated by: Dictated on workstation # [id number]
[2022-11-25] MEDS ORDERED: TOBR5DRO2 OP (19:59)
[2022-11-25 20:44] VITALS: BP 114/81
== END 2022-11-25 20:44 | disposition home or self-care (01) ==
LOC: EDUNIT# 18:46 → ER 18:48
DX: S05.01XA Injury of conjunctiva and corneal abrasion without foreign body, right eye, initial encounter (principal); X58.XXXA Exposure to other specified factors, initial encounter
CPT/HCPCS: 70450; 99281

== ENCOUNTER 2022-12-19 09:34 | Emergency (ER) | payer MEDICAID ==
[~2022-12-19] VITALS: Ht 160 cm; Wt 69.8 kg
[~2022-12-19 09:34] MED LIST changes: +TOBR5DRO2 OP
[2022-12-19] MEDS ORDERED: NS IV 1000 ML 1,000 ML IV STA (10:02)
[2022-12-19] MEDS ORDERED: FAMOTIDINE 20 MG (PEPCID) TABLET PO STA (10:02)
[2022-12-19] MEDS ORDERED: fentaNYL INJ 100 MCG/2 ML AMP IVP STA (10:02)
[2022-12-19 10:09] LABS: BASOPHILS # (AUTO) 0.1 10^3/uL (0.0-0.1); BASOPHILS % (AUTO) 1 % (0-10); EOSINOPHILS # (AUTO) 0.2 10^3/uL (0.0-0.3); EOSINOPHILS % (AUTO) 2 % (0-10); HEMATOCRIT 39 % (35-52); HEMOGLOBIN 12.5 g/dL (11.5-16.0); LYMPHOCYTES # (AUTO) 2.7 10^3/uL (1.0-4.0); LYMPHOCYTES % (AUTO) 27 % (12-44); MEAN CORPUSCULAR HEMOGLOBIN 29 pg (25-34); MEAN CORPUSCULAR HGB CONC 32 g/dL (32-36); MEAN CORPUSCULAR VOLUME 90 fL (80-99); MEAN PLATELET VOLUME 10.6 fL (9.0-12.2); MONOCYTES # (AUTO) 0.6 10^3/uL (0.0-1.0); MONOCYTES % (AUTO) 6 % (0-12); NEUTROPHILS # (AUTO) 6.2 10^3/uL (1.8-7.8); NEUTROPHILS % (AUTO) 64 % (42-75); PLATELET COUNT 290 10^3/uL (130-400); WHITE BLOOD COUNT 9.8 10^3/uL (4.3-11.0)
--- NOTE | 2022-12-19 10:13 | ED Abdominal Pain ---
General Chief Complaint: Abdominal/GI Problems Stated Complaint: UPPER ABD PAIN Nursing Triage Note: PT AMB TO RM 6 WITH CC OF UPPER ABD PAIN SINCE TUESDAY THAT RADIATES TO HER BACK. PT STATED "IT FEELS INFLAMED". PT REPORTED THAT SHE FEELS NAUSEOUS EVERY TIME SHE EATS AND VOMITED THIS AM. DIET CONSIST OF SPICY FOODS. Source of Information: Patient Exam Limitations: No Limitations History of Present Illness Date Seen by Provider: Dec 19, 2022 Time Seen by Provider: 09:50 Initial Comments Here with report of mid epigastric abdominal pain that has been 4 to 5 days and now is worse and radiating around her abdomen to her back. States initially it was better when she was eating but now is much worse. She has had nausea and occasional vomiting. She thought she might be constipated and has been drinking teas for the which has resolved without issue and she is going quite well. Denies vomit or stool. She has never had pain like this before. She denies fever or chills. Timing/Duration: 4-5 Days, Changing Over Time, Getting Worse Severity/Quality: Moderate, Burning Location: Epigastric Radiation: RUQ, LUQ, RLQ, LLQ, Back Activities at Onset: None Modifying Factors: Worsens With Eating Associated Symptoms: Back Pain; No Fever/Chills; Nausea/Vomiting; No Shortness of Air, No Swelling/Mass in Abdomen, No Weakness Allergies and Home Medications Allergies Coded Allergies: No Known Drug Allergies (Unverified , 02/11/14) Patient Home Medication List Home Medication List Reviewed: Yes Ibuprofen (Ibu) 600 Mg Tablet, 600 MG PO Q6HR PRN for PAIN-MILD (1-4) Prescribed by: MICHELA CARTER on 02/18/22 0802 Ondansetron (Ondansetron Odt) 4 Mg Tab.rapdis, 4 MG PO Q6H PRN for N AUSEA/VOMITING Prescribed by: CARLOS COLLINS on 12/19/22 1050 Pantoprazole Sodium (Pantoprazole Sodium) 40 Mg Tablet.dr, 40 MG PO DAILY Prescribed by: CARLOS COLLINS on 12/19/22 1050 Vit W-Ca,Fe,FA(<1 mg) ( Vitamins) 1 Each Tablet, 1 EACH PO DAILY, (Reported) Entered as Reported by: RITA RICH on 02/27/19 1009 Sucralfate (Sucralfate) 1 Gram Tablet, 1 GM PO ACHS Prescribed by: CARLOS COLLINS on 12/19/22 1050 Review of Systems Review of Systems Constitutional: see HPI; No chills, No fever EENTM: No Symptoms Reported Respiratory: No Symptoms Reported Cardiovascular: Denies Chest Pain, Denies Edema Gastrointestinal: Abdominal Pain, Nausea Genitourinary: No Symptoms Reported Musculoskeletal: see HPI Skin: no symptoms reported Psychiatric/Neurological: No Symptoms Reported Past Cznopav-Anrtzp-Dakmbp Hx Patient Social History Tobacco Use?: No Substance use?: Yes Substance type: Marijuana Alcohol Use?: Yes Alcohol Frequency: Once in a while Immunizations Up To Date Tetanus Booster (TDap): Less than 5yrs Seasonal Allergies Seasonal Allergies: No Past Medical History Surgery/Hospitalization HX: none Surgeries: Yes Respiratory: No Cardiac: No Neurological: No Sexually Transmitted Disease: No HIV/AIDS: No Genitourinary: No Gastrointestinal: No Musculoskeletal: No Endocrine: No HEENT: No Cancer: No Psychosocial: No Integumentary: No Blood Disorders: No Adverse Reaction/Blood Tranf: No Family Medical History Reviewed Nursing Family Hx Physical Exam Vital Signs Vital Signs - First Documented 12/19/22 09:36 Temp 37.1 Pulse 71 B/P (MAP) 127/94 (105) Pulse Ox 99 O2 Delivery Room Air Capillary Refill : Height/Weight/BMI Height: 5'0.00" Weight: 146lbs. 0.2oz. [id number]; 27.00 BMI Method: General Appearance: WD/WN, no apparent distress HEENT: PERRL/EOMI, pharynx normal Neck: full range of motion, supple Respiratory: lungs clear, normal breath sounds Cardiovascular: regular rate, rhythm, no edema Gastrointestinal: soft; No guarding, No rebound; tenderness (Mild epigastric) Back: normal inspection, no CVA tenderness, no vertebral tenderness Neurologic/Psychiatric: alert, oriented x 3 Skin: normal color, warm/dry Progress/Results/Core Measures Results/Orders Lab Results Laboratory Tests Test 12/19/22 09:48 Range/Units White Blood Count 9.8 4.3-11.0 10^3/uL Red Blood Count 4.31 3.80-5.11 10^6/uL Hemoglobin 12.5 11.5-16.0 g/dL Hematocrit 39 35-52 % Mean Corpuscular Volume 90 80-99 fL Mean Corpuscular Hemoglobin 29 25-34 pg Mean Corpuscular Hemoglobin Concent 32 32-36 g/dL Red Cell Distribution Width 13.1 10.0-14.5 % Platelet Count 290 130-400 10^3/uL Mean Platelet Volume 10.6 9.0-12.2 fL Immature Granulocyte % (Auto) 1 % Neutrophils (%) (Auto) 64 42-75 % Lymphocytes (%) (Auto) 27 12-44 % Monocytes (%) (Auto) 6 0-12 % Eosinophils (%) (Auto) 2 0-10 % Basophils (%) (Auto) 1 0-10 % Neutrophils # (Auto) 6.2 1.8-7.8 10^3/uL Lymphocytes # (Auto) 2.7 1.0-4.0 10^3/uL Monocytes # (Auto) 0.6 0.0-1.0 10^3/uL Eosinophils # (Auto) 0.2 0.0-0.3 10^3/uL Basophils # (Auto) 0.1 0.0-0.1 10^3/uL Immature Granulocyte # (Auto) 0.1 0.0-0.1 10^3/uL Sodium Level 141 135-145 MMOL/L Potassium Level 3.7 3.6-5.0 MMOL/L Chloride Level 108 H 98-107 MMOL/L Carbon Dioxide Level 22 21-32 MMOL/L Anion Gap 11 5-14 MMOL/L Blood Urea Nitrogen 11 7-18 MG/DL Creatinine 0.76 0.60-1.30 MG/DL Estimat Glomerular Filtration Rate 111 BUN/Creatinine Ratio 14 Glucose Level 100 70-105 MG/DL Calcium Level 9.4 8.5-10.1 MG/DL Corrected Calcium 9.2 8.5-10.1 MG/DL Total Bilirubin 0.4 0.1-1.0 MG/DL Aspartate Amino Transf (AST/SGOT) 20 5-34 U/L Alanine Aminotransferase (ALT/SGPT) 28 0-55 U/L Alkaline Phosphatase 82 40-136 U/L C-Reactive Protein High Sensitivity 0.45 0.00-0.50 MG/DL Total Protein 7.5 6.4-8.2 GM/DL Albumin 4.3 3.2-4.5 GM/DL Lipase 13 8-78 U/L My Orders Orders - CARLOS COLLINS MD Ondansetron Injection (Zofran Injectio (12/19/22 10:15) Famotidine Tablet (Pepcid Tablet) (12/19/22 10:02) Ns Iv 1000 Ml (Sodium Chloride 0.9%) (12/19/22 10:02) Ed Iv/Invasive Line Start (12/19/22 10:02) Fentanyl Inj (Sublimaze Injection) (12/19/22 10:02) Cbc With Automated Diff (12/19/22 10:02) Comprehensive Metabolic Panel (12/19/22 10:02) Hs C Reactive Protein (12/19/22 10:02) Lipase (12/19/22 10:02) Urine Bedside (12/19/22 10:02) Pantoprazole Injection (Protonix Injecti (12/19/22 10:15) Sucralfate Tablet (Carafate Tablet) (12/19/22 10:45) Medications Given in ED Current Medications Medications Dose Ordered Sig/Shaggy Route Start Time Stop Time Status Last Admin Dose Admin Ondansetron HCl 4 mg ONCE ONCE IVP 12/19/22 10:15 12/19/22 10:17 DC 12/19/22 10:21 4 MG Pantoprazole 40 mg ONCE ONCE IV 12/19/22 10:15 12/19/22 10:17 DC 12/19/22 10:21 40 MG Sucralfate 1 gm ONCE ONCE PO 12/19/22 10:45 12/19/22 10:46 DC 12/19/22 10:55 1 GM Vital Signs/I&O 12/19/22 09:36 Temp 37.1 Pulse 71 B/P (MAP) 127/94 (105) Pulse Ox 99 O2 Delivery Room Air Blood Pressure Mean: 105 Progress Progress Note : Progress Note Seen and evaluated. IV, labs including CBC, CMP, CRP and lipase ordered. Bedside UCG ordered. Normal saline 1 L bolus, Zofran 4 mg IV, Pepcid 20 mg p.o., Protonix 40 mg IV and fentanyl 25 mcg IV ordered for nausea and pain. Monitor patient. Differential diagnosis includes gallbladder disease, pancreatitis, reflux disease, ulcerative disease, bowel pathology 1045: Labs reviewed and CBC is grossly normal. CMP including LFTs are grossly normal. Lipase is normal. CRP is likewise negative. Overall she is feeling better. I do believe this is more ulcerative disease likely although gallbladder is still in the differential. Given that she is doing better and labs are normal overall, outpatient work-up is reasonable. Carafate 1 g p.o. now ordered and we will continue this outpatient. I will initiate PPI outpatient and have instructed her to follow-up with Dr. Serrano or surgeon of her choice for recheck and further evaluation. Patient agreed with this. Discharged home with return precautions. Patient verbalized understanding instructions and agreement with plan. 1110: I did speak with Dr. Serrano, surgeon on-call, and he is at in agreement after discussion of current findings with following her up in the clinic. Re-discussed with patient who agrees. Departure Impression Primary Impression: Epigastric abdominal pain Disposition: HOME, SELF-CARE Condition: Improved Departure-Patient Inst. Decision time for Depature: 10:48 Referrals: [facility] – [place], [place] (PCP/Family) Primary Care Physician ALEX SERRANO DO Patient Instructions: Abdominal Pain, Adult ED, Peptic Ulcers (DC) Add. Discharge Instructions: All discharge instructions reviewed with patient and/or family. Voiced understanding. Take medications as directed. Follow-up with Dr. Serrano or surgeon of your choice for recheck and further evaluation. Call Dr. Serrano's office in the morning for appointment this week. Spicy or fatty foods. Light diet for the next few days and then advance as tolerated to a normal diet but still avoiding spicy foods. Return for worse pain, fever, vomiting, blood in your vomit or stool or other concerns as needed. Scripts Ondansetron (Ondansetron Odt) 4 Mg Tab.rapdis 4 MG PO Q6H PRN for NAUSEA/VOMITING, #8 TAB 0 Refills Prov: CARLOS COLLINS MD 12/19/22 Pantoprazole Sodium (Pantoprazole Sodium) 40 Mg Tablet. 40 MG PO DAILY for 30 Days, #30 TAB Prov: CARLOS COLLINS MD 12/19/22 Sucralfate (Sucralfate) 1 Gram Tablet 1 GM PO ACHS, #56 TAB 1 Refill Chew tablet to a slurry and then swallow Prov: CARLOS COLLINS MD 12/19/22 CARLOS COLLINS MD Dec 19, 2022 10:13
[2022-12-19] MEDS ORDERED: PANTOPRAZOLE 40 MG (PROTONIX) VIAL IV ONE (10:15)
[2022-12-19] MEDS ORDERED: ONDANSETRON 4 MG/2 ML (SDV) Z0FRAN IVP ONE (10:15)
[2022-12-19 10:19] LABS: ALBUMIN 4.3 GM/DL (3.2-4.5); POTASSIUM 3.7 MMOL/L (3.6-5.0)
[2022-12-19 10:20] LABS: CALCIUM 9.4 MG/DL (8.5-10.1)
[2022-12-19 10:21] LABS: TOTAL PROTEIN 7.5 GM/DL (6.4-8.2)
[2022-12-19 10:23] LABS: BILIRUBIN,TOTAL 0.4 MG/DL (0.1-1.0)
[2022-12-19 10:25] LABS: CREATININE SERUM 0.76 MG/DL (0.60-1.30)
[2022-12-19] MEDS ORDERED: SUCRALFATE 1 GM (CARAFATE) TAB PO ONE (10:45)
[2022-12-19] MEDS ORDERED: SUCR1TAB PO (10:50)
[2022-12-19] MEDS ORDERED: PANT40TA52 PO (10:50)
[2022-12-19] MEDS ORDERED: ONDA4TAB11 PO (10:50)
[2022-12-19 11:13] VITALS: BP 127/88
== END 2022-12-19 11:16 | disposition home or self-care (01) ==
LOC: EDUNIT# 09:34 → ER 09:36
DX: R10.13 Epigastric pain (principal)
CPT/HCPCS: 36415; 80053; 83690; 84703; 85025; 86141

== ENCOUNTER 2022-12-29 05:49 | Outpatient (CLI) | payer MEDICAID ==
[~2022-12-29] VITALS: Ht 160 cm; Wt 70.3 kg
[~2022-12-29 05:49] MED LIST changes: +PANT40TA52 PO; +SUCR1TAB PO
== END 2022-12-29 16:42 | disposition home or self-care (01) ==
LOC: PREOP 05:49
PROVIDERS: ATTEND Surgery
DX: Z01.818 Encounter for other preprocedural examination (principal)

== ENCOUNTER 2023-01-06 11:13 | Day surgery (SDC) | payer MEDICAID ==
[~2023-01-06] VITALS: Ht 160 cm; Wt 70.3 kg
[2023-01-06] MEDS ORDERED: LACTATED RINGERS 1,000 ML IV STA (11:20)
[2023-01-06] MEDS ORDERED: HURRICAINE EXT TUBE (BENZOCAINE) XX PRN (11:30)
[2023-01-06 11:42] VITALS: BP 107/78
--- NOTE | 2023-01-06 12:44 | Progress Note-Pre Operative ---
Pre-Operative Progress Note Date of Available H&P: Dec 21, 2022 Date H&P Reviewed: Jan 06, 2023 Time H&P Reviewed: 11:29 History & Physical: H&P Reviewed, Patient Examed, No changes noted Pre-Operative Diagnosis: Epigastric pain ALEX SERRANO DO Jan 06, 2023 12:44
[2023-01-06] MEDS ORDERED: proPOfol 200 MG/20 ML (DIPRIVAN) VIAL IV ONE (13:23)
[2023-01-06] MEDS ORDERED: MIDAZOLAM 2 MG/2 ML (VERSED) VIAL ONE (13:25)
--- NOTE | 2023-01-06 13:34 | Progress Note-Post Operative ---
Post-Operative Progess Note Surgeon (s)/Seismic Plotter (s) Surgeon ALEX SERRANO DO Seismic Plotter: none Pre-Operative Diagnosis Epigastric pain Post-Operative Diagnosis Gastritis Small Sliding Hiatal hernia Procedure & Operative Findings Date of Procedure 01/06/23 Procedure Performed/Findings EGD with bx PROCEDURE NOTE: After informed consent was obtained, the patient was brought to the endoscopy suite, placed in bed in left lateral decubitus position. She was administered IV sedation by the PADDED BOX SEWER who then monitored vitals the entire time, heart rate, blood pressure and pulse ox and the scope was inserted down the mouth through the esophagus into the stomach. On the way down, noted some mild esophagitis, took a picture, pushed into the stomach, pushed past the antrum into the duodenum. Duodenum looked good. Pulled back and did a biopsy of antrum, then retroflexed the scope, saw very slight sliding hiatal hernia, took a picture of this and then pulled the scope into the GE junction. I then did a biopsy of the GE junction. Pushed the scope back into the stomach, suctioned all the air out of the stomach. At this point pulled the scope up the esophagus and out the mouth. The patient tolerated the procedure, and she recovered in endoscopy suite. Anesthesia Type IV sedation by PADDED BOX SEWER Estimated Blood Loss Estimated blood loss (mL): scant Specimens/Packing Specimens Removed antral bx GE jxn bx ALEX SERRANO DO Jan 06, 2023 13:34
--- NOTE | 2023-01-06 13:35 | Endoscopy Discharge Instruct ---
Endo Procedure/Findings Findings 1.: Gastritis 2.: Hiatal Hernia Discharge Instructions - Activity: You might feel a little sleepy until tomorrow. This is due to the medicine you received to relax you. Until tomorrow, you should: NOT drive a car, operate machinery or power tools. NOT drink any alcoholic beverages. NOT make any important decisions or sign importortant papers. Do not return to work until tomorrow, unless otherwise instructed. Resume previous activities tomorrow. Diet: Start by taking liquids. If you tolerate liquids, advance to solid food. 1.: EGD in 3 years Notify Physician - If you experience excessive bleeding, unusual abdominal pain, fever, or chest pain, contact your doctor immediately. Follow-Up: Other Follow up in my office in a week ALEX SERRANO DO Jan 06, 2023 13:35
[2023-01-06 13:40] VITALS: BP 104/66
[2023-01-06 14:15] VITALS: BP 125/65
--- NOTE | 2023-01-06 14:17 | Anesthesia-General Post-Op ---
MAC Patient Condition Mental Status/LOC: Same as Preop Cardiovascular: Satisfactory Nausea/Vomiting: Absent Respiratory: Satisfactory Pain: Controlled Complications: Absent Post Op Complications Complications None Follow Up Care/Instructions Patient Instructions None needed. Anesthesiology Discharge Order Discharge Order Patient is doing well, no complaints, stable vital signs, no apparent adverse anesthesia problems. No complications reported per nursing. VARSHA PARTIDA CRNA Jan 06, 2023 14:17
== END 2023-01-06 14:15 | disposition home or self-care (01) ==
LOC: ENDO 11:13
PROVIDERS: ATTEND Surgery
DX: K29.50 Unspecified chronic gastritis without bleeding (principal); B96.81 Helicobacter pylori [H. pylori] as the cause of diseases classified elsewhere; K44.9 Diaphragmatic hernia without obstruction or gangrene; K21.00 Gastro-esophageal reflux disease with esophagitis, without bleeding; Z79.899 Other long term (current) drug therapy
CPT/HCPCS: 84703

== ENCOUNTER 2023-03-09 12:31 | Outpatient (RCR) | payer MEDICAID | END 2023-03-12 | disposition home or self-care (01) | LOC: LAB 12:31 → EDSTATUS 12:31 | PROVIDERS: ATTEND Surgery | DX: Z01.89 Encounter for other specified special examinations (principal); B96.81 Helicobacter pylori [H. pylori] as the cause of diseases classified elsewhere | CPT/HCPCS: 36415; 87338 ==